=== PATIENT | female | born 1960 | race American Indian/Alaskan Native ===

== ENCOUNTER 2018-10-24 10:37 | Outpatient (CLI) | payer MEDICAID ==
--- NOTE | 2018-10-24 13:00 | Mammography Report ---
Bilateral mammogram: No previous studies available. CAD study utilized. Findings: Predominance of adipose tissue bilaterally. Benign calcifications right breast. Faint cluster of calcifications upper outer left breast. Subareolar density right breast. Normal axilla. Impression: Faint calcification left breast. Recommend spot compression and magnification views. Subareolar density right breast recommend spot compression and sonographic examination. BI-RADS CATEGORY: 0 = Needs additional imaging evaluation ACR BI-RADS MAMMOGRAPHIC CODES: 0 = Needs additional imaging evaluation; 1 = Negative; 2 = Benign; 3 = Probably benign; 4 = Suspicious; 5 = Malignant; 6 = Known biopsy-proven malignancy COMMENT: 1. Dense breast tissue, i.e., adenosis, fibrocystic changes, etc., may obscure an underlying neoplasm. 2. Approximately 10% of cancers are not detected with mammography. 3. A negative mammography report should not delay biopsy if a clinically suspicious mass is present. COMMENT: Patient follow-up letters are generated in [employer].
== END 2018-10-24 10:38 | disposition home or self-care (01) ==
LOC: MAMMO 10:37
PROVIDERS: ATTEND Internal Medicine
DX: Z12.31 Encounter for screening mammogram for malignant neoplasm of breast (principal); I10 Essential (primary) hypertension; M19.90 Unspecified osteoarthritis, unspecified site
CPT/HCPCS: 36415; 77067; 80061; 83036

== ENCOUNTER 2018-10-24 10:49 | Outpatient (CLI) | payer MEDICAID ==
[2018-10-24 12:10] LABS: Chol/HDL Ratio 3.15 %
== END 2018-10-24 10:50 | disposition home or self-care (01) ==
LOC: LAB 10:49
PROVIDERS: ATTEND Internal Medicine
DX: Z00.01 Encounter for general adult medical examination with abnormal findings (principal); I10 Essential (primary) hypertension; E66.01 Morbid (severe) obesity due to excess calories; I16.9 Hypertensive crisis, unspecified
CPT/HCPCS: 36415; 80061; 83036

== ENCOUNTER 2018-11-29 12:59 | Outpatient (CLI) | payer MEDICAID ==
--- NOTE | 2018-11-30 09:59 | Mammography Report ---
Spot compression of subareolar density right breast followed by sonographic examination: Compared to 10/24/18. Findings: On spot compression views there is effacement noted of the density. No microcalcifications seen. On sonographic examination vertebral dilated ducts are identified in subareolar area. No intrinsic mass seen. Patient is no history of nipple discharge. Impression: Probably benign findings. Annual followup. Mammogram recommended. BI-RADS CATEGORY: 2 = Benign ACR BI-RADS MAMMOGRAPHIC CODES: 0 = Needs additional imaging evaluation; 1 = Negative; 2 = Benign; 3 = Probably benign; 4 = Suspicious; 5 = Malignant; 6 = Known biopsy-proven malignancy COMMENT: 1. Dense breast tissue, i.e., adenosis, fibrocystic changes, etc., may obscure an underlying neoplasm. 2. Approximately 10% of cancers are not detected with mammography. 3. A negative mammography report should not delay biopsy if a clinically suspicious mass is present. COMMENT: Patient follow-up letters are generated in [employer].
== END 2018-11-29 13:00 | disposition home or self-care (01) ==
LOC: MAMMO 12:59
PROVIDERS: ATTEND Internal Medicine
DX: R92.8 Other abnormal and inconclusive findings on diagnostic imaging of breast (principal); I10 Essential (primary) hypertension
CPT/HCPCS: 77066

== ENCOUNTER 2018-11-30 09:30 | Outpatient (CLI) | payer MEDICAID ==
--- NOTE | 2018-11-30 09:59 | Ultrasound Report ---
Spot compression of subareolar density right breast followed by sonographic examination: Compared to 10/24/18. Findings: On spot compression views there is effacement noted of the density. No microcalcifications seen. On sonographic examination vertebral dilated ducts are identified in subareolar area. No intrinsic mass seen. Patient is no history of nipple discharge. Impression: Probably benign findings. Annual followup. Mammogram recommended. BI-RADS CATEGORY: 2 = Benign ACR BI-RADS MAMMOGRAPHIC CODES: 0 = Needs additional imaging evaluation; 1 = Negative; 2 = Benign; 3 = Probably benign; 4 = Suspicious; 5 = Malignant; 6 = Known biopsy-proven malignancy COMMENT: 1. Dense breast tissue, i.e., adenosis, fibrocystic changes, etc., may obscure an underlying neoplasm. 2. Approximately 10% of cancers are not detected with mammography. 3. A negative mammography report should not delay biopsy if a clinically suspicious mass is present. COMMENT: Patient follow-up letters are generated in [employer].
== END 2018-11-30 09:31 | disposition home or self-care (01) ==
LOC: US 09:30
PROVIDERS: ATTEND Internal Medicine
DX: R92.8 Other abnormal and inconclusive findings on diagnostic imaging of breast (principal); I10 Essential (primary) hypertension

== ENCOUNTER 2019-01-19 12:34 | Emergency (ER) | payer MEDICAID ==
[2019-01-19 12:41] VITALS: BP 195/118
--- NOTE | 2019-01-19 12:48 | Event Note ---
ED Screening Note ED Screening Note: 58 y/o female comes in for abd pain that started last night about 9pm. Diffused and radiate to her back. +n/v. Chills. This initial assessment/diagnostic orders/clinical plan/treatment(s) is/are subject to change based on patients health status, clinical progression and re- assessment by fellow clinical providers in the ED. Further treatment and workup at subsequent clinical providers discretion. Patient/guardian urged not to elope from the ED as their condition may be serious if not clinically assessed and managed. Initial orders include:
[2019-01-19] MEDS ORDERED: ZOFRAN IV ONE (13:02)
[2019-01-19] MEDS ORDERED: LACTATED RINGERS 1,000 ML IV ONE (13:02)
[2019-01-19] MEDS ORDERED: MORPHINE IV ONE (13:02)
--- NOTE | 2019-01-19 13:06 | Emergency Department Report ---
ED Abdominal Pain HPI - General Chief Complaint: Abdominal Pain Stated Complaint: ABDOMINAL PAIN Time Seen by Provider: 01/19/19 13:01 Source: patient Mode of arrival: Wheelchair Limitations: No Limitations - History of Present Illness Initial Comments: abd pain, n/v after eating a tuna sandwich last night no diarrhea no cp/sob MD Complaint: abdominal pain -: Gradual, hour(s) (16) Location: diffuse Radiation: none Migration to: no migration Severity: moderate Severity scale (0 -10): 6 Quality: cramping, aching Consistency: constant Improves With: nothing Worsens With: nothing Context: possible food poisoning Associated Symptoms: nausea, vomiting, chills. denies: diarrhea - Related Data Previous Rx's Medication Instructions Recorded Last Taken Type Aspirin [Aspirin BABY CHEW TAB] 81 mg PO QDAY tab.chew 07/17/15 Unknown Rx Diphenhydramine HCl [Benadryl 25 mg PO TID #7 tablet 07/17/15 Unknown Rx Allergy TAB] Famotidine [Pepcid] 20 mg PO BID #60 tablet 07/17/15 Unknown Rx Furosemide [Lasix TAB] 40 mg PO QDAY #30 tablet 07/17/15 Unknown Rx HYDROcodone/APAP 5-325 [[place] 1 each PO Q6H PRN #30 tablet 07/17/15 Unknown Rx 5-325 mg TAB] Potassium Chloride [K-Dur] 10 meq PO QDAY #30 tablet 07/17/15 Unknown Rx prednisoLONE [Millipred] 10 tab PO QDAY #52 tablet 07/17/15 Unknown Rx Hyoscyamine Subl [Levsin Sl 0.125 0.125 mg SL Q6HR #12 tab 01/19/19 Unknown Rx TAB] Promethazine [Phenergan] 25 mg PO Q6HR PRN #12 tab 01/19/19 Unknown Rx Allergies Allergy/AdvReac Type Severity Reaction Status Date / Time lisinopril AdvReac Angioedema Verified 01/19/19 12:35 ED Review of Systems ROS: Stated complaint: ABDOMINAL PAIN Other details as noted in HPI Comment: All other systems reviewed and negative Gastrointestinal: as per HPI ED Past Medical Hx - Past Medical History Hx Hypertension: Yes Hx Congestive Heart Failure: No Hx Diabetes: No Hx Arthritis: Yes Hx Asthma: No Hx COPD: No - Surgical History Additional Surgical History: hernia - Social History Smoking Status: Never Smoker Substance Use Type: None - Medications Home Medications: Home Medications Medication Instructions Recorded Confirmed Last Taken Type Aspirin [Aspirin BABY CHEW TAB] 81 mg PO QDAY tab.chew 07/17/15 Unknown Rx Diphenhydramine HCl [Benadryl 25 mg PO TID #7 tablet 07/17/15 Unknown Rx Allergy TAB] Famotidine [Pepcid] 20 mg PO BID #60 tablet 07/17/15 Unknown Rx Furosemide [Lasix TAB] 40 mg PO QDAY #30 tablet 07/17/15 Unknown Rx HYDROcodone/APAP 5-325 [[place] 1 each PO Q6H PRN #30 tablet 07/17/15 Unknown Rx 5-325 mg TAB] Potassium Chloride [K-Dur] 10 meq PO QDAY #30 tablet 07/17/15 Unknown Rx prednisoLONE [Millipred] 10 tab PO QDAY #52 tablet 07/17/15 Unknown Rx Hyoscyamine Subl [Levsin Sl 0.125 0.125 mg SL Q6HR #12 tab 01/19/19 Unknown Rx TAB] Promethazine [Phenergan] 25 mg PO Q6HR PRN #12 tab 01/19/19 Unknown Rx ED Physical Exam - General Limitations: No Limitations General appearance: alert, in no apparent distress - Head Head exam: Present: atraumatic, normocephalic - Eye Eye exam: Present: normal appearance - ENT ENT exam: Present: mucous membranes moist - Neck Neck exam: Present: normal inspection - Respiratory Respiratory exam: Present: normal lung sounds bilaterally. Absent: respiratory distress - Cardiovascular Cardiovascular Exam: Present: regular rate, normal rhythm. Absent: systolic mur mur, diastolic murmur, rubs, gallop - GI/Abdominal GI/Abdominal exam: Present: soft, tenderness (diffuse, most epigastric and LLQ), normal bowel sounds. Absent: distended, guarding, rebound - Extremities Exam Extremities exam: Present: normal inspection - Back Exam Back exam: Present: normal inspection - Neurological Exam Neurological exam: Present: alert, oriented X3 - Psychiatric Psychiatric exam: Present: normal affect, normal mood - Skin Skin exam: Present: warm, dry, intact, normal color. Absent: rash ED Course Vital Signs 01/19/19 12:40 Temperature 97.8 F Pulse Rate 75 Respiratory 20 Rate Blood Pressure 195/118 [Left] O2 Sat by Pulse 100 Oximetry - Reevaluation(s) Reevaluation #1: 01/19/19 16:54 feels better discussed incidental findings on CT no cough/fever to suggest PNA no RUQ ttp to suggest GB etiology of pain encourage f/u PCP, RTER for worsening symptoms ED Medical Decision Making - Lab Data Result diagrams: 01/19/19 13:07 01/19/19 13:07 - Radiology Data Radiology results: report reviewed CT= multiple incidental findings including distended gallbladder, L inguinal hernia, OA of hips, atelectasis (no sx to suggest pna), fibroids - Medical Decision Making abd pain, n/v exam- diffuse ttp plan- labs, CT IVF, morphine, zofran - Differential Diagnosis gastroenteritis, diverticulitis, colitis, appendicitis among others Critical care attestation.: If time is entered above; I have spent that time in minutes in the direct care of this critically ill patient, excluding procedure time. ED Disposition Clinical Impression: Abdominal pain Qualifiers: Abdominal location: generalized Qualified Code(s): R10.84 - Generalized abdominal pain Disposition: DC- TO HOME OR SELFCARE Is pt being admited?: No Condition: Stable Instructions: Abdominal Pain (ED) Prescriptions: Hyoscyamine Subl [Levsin Sl 0.125 TAB] 0.125 mg SL Q6HR #12 tab Promethazine [Phenergan] 25 mg PO Q6HR PRN #12 tab PRN Reason: Nausea Referrals: TIMUR BENTON MD [Primary Care Provider] - 3-5 Days Time of Disposition: 16:55
[2019-01-19 13:26] LABS: Basophils % (Auto) 0.3 % (0.0-1.8); Eosinophils # (Auto) 0.1 K/mm3 (0.0-0.4); Eosinophils % (Auto) 2.5 % (0.0-4.3); Hematocrit 42.8 % (30.3-42.9); Hemoglobin 14.1 gm/dl (10.1-14.3); Lymphocytes % (Auto) 40.7 % (13.4-35.0); Mean Corpuscular HGB Conc 33 % (30-34); Mean Corpuscular Volume 90 fl (79-97); Monocytes # (Auto) 0.5 K/mm3 (0.0-0.8); Monocytes % (Auto) 9.3 % (0.0-7.3); Platelet Count 198 K/mm3 (140-440); Red Blood Count 4.77 M/mm3 (3.65-5.03)
[2019-01-19 13:44] LABS: Bilirubin,Urine NEG (Negative); Blood,Urine SM (Negative); Color,Urine Yellow (Yellow); Mucus,Urine FEW /HPF; Protein,Urine <15 mg/dL mg/dL (Negative); Urobilinogen,Urine < 2.0 mg/dL (<2.0)
[2019-01-19 14:05] LABS: Alanine Aminotransferase 15 units/L (7-56); Albumin 3.9 g/dL (3.9-5); BUN/Creatinine Ratio 14; Blood Urea Nitrogen 10 mg/dL (7-17); Hemolysis Index 1
--- NOTE | 2019-01-19 16:45 | Cat Scan Report ---
EXAM: CT ABDOMEN PELVIS W CON HISTORY: abd pain TECHNIQUE: Spiral axial CT images are obtained through the abdomen and pelvis without the administrat ion of oral contrast and with the administration of intravenous contrast. Additional coronal and sagi ttal reformatted images are reconstructed. COMPARISON: None available. FINDINGS: GASTROINTESTINAL TRACT: There is a small hiatal hernia. There are no stigmata of bowel obstruction, c olitis or diverticulitis. A normal-appearing appendix is seen. GENITOURINARY SYSTEM: The kidneys are unremarkable. There is no ureteral calculus or stigmata of obst ructive uropathy. The urinary bladder is grossly unremarkable for a non-dedicated exam. CT ABDOMEN: There is a grossly dilated/elongated gallbladder with questionable gallbladder wall thick ening; nonspecific finding which may represent sequela of NPO status, but cannot rule out cholelithia sis in the appropriate clinical setting. Consider follow-up evaluation with ultrasound to rule out oc cult cholelithiasis and/or HIDA scan to rule out cystic duct obstruction and acute cholecystitis as c linically warranted. The liver, spleen, pancreas, adrenal glands, aorta, and inferior vena cava are within normal limits for a noncontrast CT scan. There is no intra-abdominal or retroperitoneal lymph adenopathy, free fluid, or free air seen. Status post ventral hernia repair with mesh in situ; no her luci recurrence seen. No abdominal herniation is noted. CT PELVIS: There is an enlarged fibroid uterus, with a dominant anterior right fundal fibroid measuri ng approximately 4.7 cm. No gross adnexal mass lesion is seen. No pelvic sidewall or inguinal lympha denopathy is seen. Small, approximately 5.8 cm CC by 2.7 cm transverse by 2.1 cm AP, fat-containing l eft inguinal hernia of doubtful clinical significance. No free fluid or free air is seen. There is se paul osteoarthritis of the hips. LUNG BASES: There is a mild right lower lobe groundglass parenchymal infiltrate, presumed to represen t atelectasis, but cannot rule out mild pulmonary congestion or mild acute pneumonia in the appropria te clinical setting. Recommend clinical correlation and appropriate followup evaluation as clinically warranted to ensure complete clearance. IMPRESSION: 1. Grossly dilated/elongated gallbladder with questionable gallbladder wall thickening; nonspecific finding which may represent sequela of NPO status, but cannot rule out cholelithiasis in the appropri ate clinical setting. Consider follow-up evaluation with ultrasound to rule out occult cholelithiasis and/or HIDA scan to rule out cystic duct obstruction and acute cholecystitis as clinically warranted . 2. No evidence for renal stone disease or obstructive uropathy. 3. No evidence for acute appendicitis, bowel obstruction, colitis or diverticulitis seen. 4. Small hiatal hernia. 5. Enlarged fibroid uterus, with a dominant anterior right fundal fibroid measuring approximately 4. 7 cm. No gross adnexal mass lesion is seen. 6. No free fluid, free air or lymphadenopathy seen. 7. Severe osteoarthritis of the hips. 8. Mild right lower lobe groundglass parenchymal infiltrate, presumed to represent atelectasis, but cannot rule out mild pulmonary congestion or mild acute pneumonia in the appropriate clinical setting . Recommend clinical correlation and appropriate followup evaluation as clinically warranted to ensur e complete clearance. This document is electronically signed by Blaise Wilcox MD., January 19 2019 04:43:42 PM ET
== END 2019-01-19 17:48 | disposition home or self-care (01) ==
LOC: ED 12:34
DX: R10.84 Generalized abdominal pain (principal); R11.2 Nausea with vomiting, unspecified; R10.13 Epigastric pain; R10.32 Left lower quadrant pain; I10 Essential (primary) hypertension; M19.90 Unspecified osteoarthritis, unspecified site; Z88.5 Allergy status to narcotic agent; Z79.82 Long term (current) use of aspirin; Z79.899 Other long term (current) drug therapy
CPT/HCPCS: 36415; 74177; 80053; 81001; 83690; 85025; 96361; 96374; 96375; 99284; J2270; J2405; J7120; Q9967

== ENCOUNTER 2019-02-04 02:32 | Emergency (ER) | payer MEDICAID ==
[2019-02-04] MEDS ORDERED: SUBLIMAZE IV ONE (03:13)
[2019-02-04] MEDS ORDERED: ANTIVERT PO ONE (03:13)
[2019-02-04] MEDS ORDERED: ZOFRAN IV ONE (03:13)
--- NOTE | 2019-02-04 03:18 | Emergency Department Report ---
HPI - General Chief Complaint: Nausea/Vomiting/Diarrhea Time Seen by Provider: 02/04/19 03:00 - HPI HPI: Room 26 The patient is a 58-year-old female presenting with chief complaint of vertigo. The patient states this evening at approximately 21:00 she developed nausea. The patient says she took a Zofran and laid down. The patient states when she attempted to get up to the bathroom felt as though the room was spinning. Patient says she also had a frontal headache nausea and vomiting. The patient states change in position worsens the vertigo. Patient is a headache a score of 8/10. Location: [See above] Duration: [See above] Quality: [See above] Severity: [See above] Modifying factors: [see above] Context: [see above] Mode of transportation: [not driving] ED Past Medical Hx - Past Medical History Hx Hypertension: Yes Hx Arthritis: Yes - Surgical History Past Surgical History?: No Additional Surgical History: hernia - Family History Family history: no significant - Social History Smoking Status: Never Smoker Substance Use Type: None - Medications Home Medications: Home Medications Medication Instructions Recorded Confirmed Last Taken Type Aspirin [Aspirin BABY CHEW TAB] 81 mg PO QDAY tab.chew 07/17/15 Unknown Rx Diphenhydramine HCl [Benadryl 25 mg PO TID #7 tablet 07/17/15 Unknown Rx Allergy TAB] Famotidine [Pepcid] 20 mg PO BID #60 tablet 07/17/15 Unknown Rx Furosemide [Lasix TAB] 40 mg PO QDAY #30 tablet 07/17/15 Unknown Rx HYDROcodone/APAP 5-325 [[place] 1 each PO Q6H PRN #30 tablet 07/17/15 Unknown Rx 5-325 mg TAB] Potassium Chloride [K-Dur] 10 meq PO QDAY #30 tablet 07/17/15 Unknown Rx prednisoLONE [Millipred] 10 tab PO QDAY #52 tablet 07/17/15 Unknown Rx Hyoscyamine Subl [Levsin Sl 0.125 0.125 mg SL Q6HR #12 tab 01/19/19 Unknown Rx TAB] Promethazine [Phenergan] 25 mg PO Q6HR PRN #12 tab 01/19/19 Unknown Rx HYDROcodone/APAP 5-325 [[place] 1 - 2 each PO Q6HR PRN #10 tablet 02/04/19 Unknown Rx 5/325] Meclizine [Antivert] 25 mg PO TID PRN #20 tablet 02/04/19 Unknown Rx Ondansetron [Zofran ODT TAB] 8 mg PO Q8HR #20 tab.rapdis 02/04/19 Unknown Rx ED Review of Systems ROS: Stated complaint: VOMITING Other details as noted in HPI Constitutional: denies: fever Eyes: denies: eye pain ENT: denies: throat pain Respiratory: no symptoms reported Cardiovascular: denies: chest pain Endocrine: no symptoms reported Gastrointestinal: nausea, vomiting Genitourinary: denies: dysuria Musculoskeletal: denies: back pain Neurological: headache, vertigo Physical Exam - Physical Exam Vital Signs: Vital Signs 02/04/19 02:59 Temperature 97.8 F Pulse Rate 60 Respiratory 17 Rate Blood Pressure 160/84 O2 Sat by Pulse 94 Oximetry Physical Exam: GENERAL: The patient is well-developed well-nourished female lying on stretcher not appearing to be in acute distress. [] HEENT: Normocephalic. Atraumatic. Extraocular motions are intact. Patient has moist mucous membranes. No nystagmus noted NECK: Supple. Trachea midline CHEST/LUNGS: Clear to auscultation. There is no respiratory distress noted. HEART/CARDIOVASCULAR: Regular. There is no tachycardia. There is no gallop rub or murmur. ABDOMEN: Abdomen is soft, with mild discomfort to palpation in the right upper quadrant. Patient has normal bowel sounds. There is no abdominal distention. SKIN: There is no rash. There is no edema. There is no diaphoresis. NEURO: The patient is awake, alert, and oriented. The patient is cooperative. The patient has no focal neurologic deficits. The patient has normal speech. Cranial nerves II through XII grossly intact, no drift. No dysmetria noted with [id number] bilaterally MUSCULOSKELETAL: There is no evidence of acute injury. ED Course Vital Signs 02/04/19 02:59 Temperature 97.8 F Pulse Rate 60 Respiratory 17 Rate Blood Pressure 160/84 O2 Sat by Pulse 94 Oximetry Vital Signs 02/04/19 02/04/19 02/04/19 02:59 03:39 04:54 Temperature 97.8 F Pulse Rate 60 60 74 Respiratory 17 17 17 Rate Blood Pressure 160/84 Blood Pressure 128/89 [Right] O2 Sat by Pulse 94 100 99 Oximetry - Reevaluation(s) Reevaluation #1: 02/04/19 05:00 Patient states she feels improved ED Medical Decision Making - Lab Data Result diagrams: 02/04/19 03:34 02/04/19 03:34 Laboratory Tests 02/04/19 02/04/19 02/04/19 03:34 03:34 03:34 WBC 6.1 RBC 4.68 Hgb 13.9 Hct 42.2 MCV 90 MCH 30 MCHC 33 RDW 14.8 Plt Count 207 Lymph % (Auto) 17.1 Baker % (Auto) 5.7 Eos % (Auto) 0.5 Baso % (Auto) 0.2 Lymph # 1.0 L Baker # 0.3 Eos # 0.0 Baso # 0.0 Seg Neutrophils % 76.5 H Seg Neutrophils # 4.6 PT 13.8 INR 1.09 APTT 26.8 Sodium 141 Potassium 4.1 Chloride 105.0 Carbon Dioxide 27 Anion Gap 13 BUN 18 H Creatinine 0.9 Estimated GFR > 60 BUN/Creatinine Ratio 20 Glucose 117 H Calcium 9.0 Total Bilirubin 0.20 AST 18 ALT 16 Alkaline Phosphatase 63 Total Creatine Kinase 124 CK-MB (CK-2) 1.8 CK-MB (CK-2) Rel Index 1.4 Troponin T < 0.010 Total Protein 7.6 Albumin 4.0 Albumin/Globulin Ratio 1.1 - Radiology Data Radiology results: report reviewed (CT head), image reviewed (CT head) [facility] [address] [place] [address] Cat Scan Report Signed Patient: AJIT CHOWDHURY MR#: [id number] : 1960 Acct:[id number] Age/Sex: 58 / F ADM Date: 02/04/19 Loc: ED Attending Dr: Ordering Physician: ANGUS ANDERSON MD Date of Service: 02/04/19 Pro cedure(s): CT head/brain wo con Accession Number(s): [id number] cc: ANGUS ANDERSON MD CT head/brain wo con INDICATION / CLINICAL INFORMATION: MAIN: headache, vertigo, NAUSEA, VOMITING. TECHNIQUE: All CT scans at this location are performed using CT dose reduction for ALARA by means of automated exposure control. COMPARISON: 12/15/2014 FINDINGS: No acute intracranial hemorrhage. No abnormal extra-axial fluid collection. No evidence of mass effect. The ventricular system and basilar cisterns are normal. Note is made of empty sella. Visualized paranasal sinuses are clear. Mastoid air cells are normally aerated. No skeletal abnormality. IMPRESSION: 1. No acute intracranial abnormality or interval change. Signer Name: Ino Dietz MD Signed: 02/04/2019 4:39 AM Workstation Name: [id number] Transcribed By: GA Dictated By: Ino Dietz MD Electronically Authenticated By: Ino Dietz MD Signed Date/Time: 02/04/19438 DD/ 3 TD/TT: - Differential Diagnosis vertigo, intracranial mass, ICH Critical care attestation.: If time is entered above; I have spent that time in minutes in the direct care of this critically ill patient, excluding procedure time. ED Disposition Clinical Impression: Vertigo, Nausea & vomiting Disposition: - TO HOME OR SELFCARE Is pt being admited?: No Does the pt Need Aspirin: No Condition: Stable Instructions: Vertigo (ED) Additional Instructions: Return to the emergency department immediately should you develop worsening symptoms, fever, inability to tolerate food or liquid or any other concerns. Prescriptions: Meclizine [Antivert] 25 mg PO TID PRN #20 tablet PRN Reason: Vertigo HYDROcodone/APAP 5-325 [[place] 5/325] 1 - 2 each PO Q6HR PRN #10 tablet PRN Reason: Pain Ondansetron [Zofran ODT TAB] 8 mg PO Q8HR #20 tab.isabelle Referrals: PRIMARY MD HIRAL [Primary Care Provider] - 3-5 Days MARU CASTILLO MD [Staff Physician] - 2-3 Days (Dr Castillo is a neurologist. Please follow-up with him for further evaluation) Time of Disposition: 05:01
[2019-02-04 03:59] LABS: Basophils % (Auto) 0.2 % (0.0-1.8); Eosinophils % (Auto) 0.5 % (0.0-4.3); Hematocrit 42.2 % (30.3-42.9); Hemoglobin 13.9 gm/dl (10.1-14.3); Lymphocytes % (Auto) 17.1 % (13.4-35.0); Mean Corpuscular HGB Conc 33 % (30-34); Mean Corpuscular Volume 90 fl (79-97); Monocytes # (Auto) 0.3 K/mm3 (0.0-0.8); Monocytes % (Auto) 5.7 % (0.0-7.3); Platelet Count 207 K/mm3 (140-440); Red Blood Count 4.68 M/mm3 (3.65-5.03); Red Cell Distribution Width 14.8 % (13.2-15.2)
[2019-02-04 04:07] LABS: INR 1.09 (0.87-1.13)
[2019-02-04 04:08] LABS: Partial Thromboplastin Time 26.8 Sec. (24.2-36.6)
[2019-02-04 04:28] LABS: Creatine Kinase MB 1.8 ng/mL (0.0-4.0)
[2019-02-04 04:30] LABS: Alanine Aminotransferase 16 units/L (7-56); BUN/Creatinine Ratio 20; Blood Urea Nitrogen 18 mg/dL (7-17); Hemolysis Index 7
--- NOTE | 2019-02-04 04:43 | Cat Scan Report ---
CT head/brain wo con INDICATION / CLINICAL INFORMATION: MAIN: headache, vertigo, NAUSEA, VOMITING. TECHNIQUE: All CT scans at this location are performed using CT dose reduction for ALARA by means of automated e xposure control. COMPARISON: 12/15/2014 FINDINGS: No acute intracranial hemorrhage. No abnormal extra-axial fluid collection. No evidence of mass effect. The ventricular system and basilar cisterns are normal. Note is made of empty sella. Visualized paranasal sinuses are clear. Mastoid air cells are normally aerated. No skeletal abnormality. IMPRESSION: 1. No acute intracranial abnormality or interval change. Signer Name: Ino Dietz MD Signed: 02/04/2019 4:39 AM Workstation Name: [id number]
[2019-02-04 04:55] VITALS: BP 128/89
[2019-02-04] MEDS ORDERED: REGLAN IV ONE (04:59)
== END 2019-02-04 05:23 | disposition home or self-care (01) ==
LOC: ED 02:32
DX: R42 Dizziness and giddiness (principal); R11.2 Nausea with vomiting, unspecified; I10 Essential (primary) hypertension; M19.90 Unspecified osteoarthritis, unspecified site; Z79.899 Other long term (current) drug therapy; Z79.82 Long term (current) use of aspirin
CPT/HCPCS: 36415; 70450; 80053; 82550; 82553; 84484; 85025; 85610; 85730; 96374; 96375; 99284; J2405; J2765; J3010

== ENCOUNTER 2019-02-07 12:54 | Outpatient (CLI) | payer MEDICAID ==
--- NOTE | 2019-02-07 16:20 | Vascular Lab Report ---
DUPLEX DOPPLER LOWER EXTREMITY ARTERIAL, RIGHT INDICATION: PERIPHERAL VASCULAR DISEASE. TECHNIQUE: Arterial duplex examination of both lower extremities performed using B-mode, color flow and spectral Doppler assessment. FINDINGS: RIGHT: Common Femoral Artery: PSV 153 cm/sec. Triphasic waveform. Proximal SFA: PSV 116 cm/sec. Triphasic waveform. Mid SFA: PSV 81 cm/sec. Triphasic waveform. Distal SFA: PSV 71 cm/sec. Triphasic waveform. Popliteal artery: PSV 45 cm/sec. Triphasic waveform. Posterior tibial artery: PSV 38 cm/sec. Triphasic waveform. Dorsalis Pedis Artery: PSV 65 cm/sec. Triphasic waveform. Doppler Waveform: * Triphasic is normal. * Biphasic is abnormal if clear transition from triphasic signal along vascular tree. * Monophasic is abnormal. IMPRESSION: No significant peripheral artery disease in the right lower extremity. Signer Name: Mello Aguilar Jr, MD Signed: 02/07/2019 4:16 PM Workstation Name: [id number]
== END 2019-02-07 12:55 | disposition home or self-care (01) ==
LOC: VAS 12:54
PROVIDERS: ATTEND Internal Medicine
DX: I73.9 Peripheral vascular disease, unspecified (principal)

== ENCOUNTER 2019-02-17 15:52 | Emergency (ER) | payer MEDICAID ==
--- NOTE | 2019-02-17 16:09 | Emergency Department Report ---
Blank Doc - Documentation Documentation: This is a 58-year-old female that presents with right lower back/groin pain with radiation to right leg. Denies any urinary symptoms. This initial assessment/diagnostic orders/clinical plan/treatment(s) is/are subject to change based on patient's health status, clinical progression and re- assessment by fellow clinical providers in the ED. Further treatment and workup at subsequent clinical providers discretion. Patient/guardians urged not to elope from the ED as their condition may be serious if not clinically assessed and managed. Initial orders include: 1- Patient sent to [facility] for further evaluation and treatment
[2019-02-17 17:35] LABS: Bilirubin,Urine NEG (Negative); Blood,Urine NEG (Negative); Color,Urine Yellow (Yellow); Mucus,Urine 1+ /HPF; Protein,Urine <15 mg/dL mg/dL (Negative); Urobilinogen,Urine < 2.0 mg/dL (<2.0)
[2019-02-17] MEDS ORDERED: ULTRAM PO ONE (19:17)
--- NOTE | 2019-02-17 19:20 | Emergency Department Report ---
ED General Adult HPI - General Chief complaint: Extremity Problem,Nontraumatic Stated complaint: GROIN PAIN Time Seen by Provider: 02/17/19 16:07 Source: patient Mode of arrival: Wheelchair Limitations: No Limitations - History of Present Illness Initial comments: She is a 58-year-old female presents to ED complaining of right-sided lower pelvic/groin pain that began last night while she got up out of the bed. Patient states that she did not have any injuries fall or trauma. Patient states pain is about the last her right pelvis/groin region. Patient also states that pain is worse in the applying pressure to the right side of the pelvis. Patient states that she's had similar pain about a month ago. She denies fevers/chills/nausea vomiting/diarrhea/vaginal pain, discharge or bleeding. - Related Data Previous Rx's Medication Instructions Recorded Last Taken Type Aspirin [Aspirin BABY CHEW TAB] 81 mg PO QDAY tab.chew 07/17/15 Unknown Rx Diphenhydramine HCl [Benadryl 25 mg PO TID #7 tablet 07/17/15 Unknown Rx Allergy TAB] Famotidine [Pepcid] 20 mg PO BID #60 tablet 07/17/15 Unknown Rx Furosemide [Lasix TAB] 40 mg PO QDAY #30 tablet 07/17/15 Unknown Rx HYDROcodone/APAP 5-325 [[place] 1 each PO Q6H PRN #30 tablet 07/17/15 Unknown Rx 5-325 mg TAB] Potassium Chloride [K-Dur] 10 meq PO QDAY #30 tablet 07/17/15 Unknown Rx prednisoLONE [Millipred] 10 tab PO QDAY #52 tablet 07/17/15 Unknown Rx Hyoscyamine Subl [Levsin Sl 0.125 0.125 mg SL Q6HR #12 tab 01/19/19 Unknown Rx TAB] Promethazine [Phenergan] 25 mg PO Q6HR PRN #12 tab 01/19/19 Unknown Rx HYDROcodone/APAP 5-325 [[place] 1 - 2 each PO Q6HR PRN #10 tablet 02/04/19 Unknown Rx 5/325] Meclizine [Antivert] 25 mg PO TID PRN #20 tablet 02/04/19 Unknown Rx Ondansetron [Zofran ODT TAB] 8 mg PO Q8HR #20 tab.rapdis 02/04/19 Unknown Rx Ibuprofen [Motrin] 800 mg PO Q8HR #30 tablet 02/17/19 Unknown Rx traMADol [Ultram 50 MG tab] 50 mg PO Q6HR PRN #15 tablet 02/17/19 Unknown Rx Allergies Allergy/AdvReac Type Severity Reaction Status Date / Time lisinopril AdvReac Angioedema Verified 01/19/19 12:35 ED Review of Systems ROS: Stated complaint: GROIN PAIN Other details as noted in HPI Comment: All other systems reviewed and negative ED Past Medical Hx - Past Medical History Previous Medical History?: Yes Hx Hypertension: Yes Hx Congestive Heart Failure: No Hx Diabetes: No Hx Arthritis: Yes Hx Asthma: No Hx COPD: No - Surgical History Past Surgical History?: Yes Additional Surgical History: hernia - Social History Smoking Status: Never Smoker Substance Use Type: None - Medications Home Medications: Home Medications Medication Instructions Recorded Confirmed Last Taken Type Aspirin [Aspirin BABY CHEW TAB] 81 mg PO QDAY tab.chew 07/17/15 Unknown Rx Diphenhydramine HCl [Benadryl 25 mg PO TID #7 tablet 07/17/15 Unknown Rx Allergy TAB] Famotidine [Pepcid] 20 mg PO BID #60 tablet 07/17/15 Unknown Rx Furosemide [Lasix TAB] 40 mg PO QDAY #30 tablet 07/17/15 Unknown Rx HYDROcodone/APAP 5-325 [[place] 1 each PO Q6H PRN #30 tablet 07/17/15 Unknown Rx 5-325 mg TAB] Potassium Chloride [K-Dur] 10 meq PO QDAY #30 tablet 07/17/15 Unknown Rx prednisoLONE [Millipred] 10 tab PO QDAY #52 tablet 07/17/15 Unknown Rx Hyoscyamine Subl [Levsin Sl 0.125 0.125 mg SL Q6HR #12 tab 01/19/19 Unknown Rx TAB] Promethazine [Phenergan] 25 mg PO Q6HR PRN #12 tab 01/19/19 Unknown Rx HYDROcodone/APAP 5-325 [[place] 1 - 2 each PO Q6HR PRN #10 tablet 02/04/19 Unknown Rx 5/325] Meclizine [Antivert] 25 mg PO TID PRN #20 tablet 02/04/19 Unknown Rx Ondansetron [Zofran ODT TAB] 8 mg PO Q8HR #20 tab.rapdis 02/04/19 Unknown Rx Ibuprofen [Motrin] 800 mg PO Q8HR #30 tablet 02/17/19 Unknown Rx traMADol [Ultram 50 MG tab] 50 mg PO Q6HR PRN #15 tablet 02/17/19 Unknown Rx ED Physical Exam - General Limitations: No Limitations General appearance: alert, in no apparent distress - Head Head exam: Present: atraumatic, normocephalic - Eye Eye exam: Present: normal appearance - ENT ENT exam: Present: mucous membranes moist - Neck Neck exam: Present: normal inspection - Respiratory Respiratory exam: Present: normal lung sounds bilaterally. Absent: respiratory distress - Cardiovascular Cardiovascular Exam: Present: regular rate, normal rhythm. Absent: systolic murmur, diastolic murmur, rubs, gallop - GI/Abdominal GI/Abdominal exam: Present: soft, tenderness (the right groin region. No abdominal tenderness.), normal bowel sounds. Absent: distended, guarding, rebound, organomegaly, mass, hernia - Expanded GI/Abdominal Exam Expanded GI/Abdominal exam: Absent: psoas sign, Nunes's sign, Rovsing's sign - Extremities Exam Extremities exam: Present: normal inspection, full ROM, tenderness (to the right inner groin region, no palpation of the inguinal hernia). Absent: joint swelling, calf tenderness - Back Exam Back exam: Present: normal inspection - Neurological Exam Neurological exam: Present: alert, oriented X3 - Psychiatric Psychiatric exam: Present: normal affect, normal mood - Skin Skin exam: Present: warm, dry, intact, normal color. Absent: rash ED Course Vital Signs 02/17/19 02/17/19 16:08 22:23 Temperature 98.6 F 97.9 F Pulse Rate 88 62 Respiratory 18 18 Rate Blood Pressure 141/80 Blood Pressure 166/93 [Right] O2 Sat by Pulse 100 98 Oximetry ED Medical Decision Making - Radiology Data Radiology results: report reviewed, image reviewed Ordering Physician: DEZ CARMONA Date of Service: 02/17/19 Procedure(s): US pelvic complete Accession Number(s): [id number] cc: DEZ CARMONA Examination: Complete nonobstetrical pelvic ultrasound, 02/17/2019 Clinical information: Right-sided pelvic pain Comparison: CT of the abdomen and pelvis, 01/19/2019 Findings: Transabdominal imaging of the pelvis was performed. Transvaginal evaluation was not performed due to patient's clinical condition. The uterus is within normal limits in size measuring 8.4 x 5.6 X 6.9 cm. The endometrial complex measures a maximum thickness of 1.5 cm. The bilateral adnexal regions are not well visualized. No free pelvic fluid is clearly identified. The uterine fibroids seen on the previous CT is not well visualized on today's study. Impression: 1. Technically limited study with details as above. Signer Name: Kiki Fiore MD Signed: 02/17/2019 8:37 PM Workstation Name: [id number] Transcribed By: EB Dictated By: Kiki Fiore MD Electronically Authenticated By: Kiki Fiore MD Signed Date/Time: 02/17/192036 - Medical Decision Making 58-year-old female who presented right groin pain ultrasound of the pelvic, reported above. Discussed findings with the patient. The patient received tramadol in the ED. Patient reports feeling Better and pain alleviated with the medication. Vital signs are normal patient is in no acute distress. Discussed with patient to follow up with her primary care physician/[employer] TECHNICIAN. Critical care attestation.: If time is entered above; I have spent that time in minutes in the direct care of this critically ill patient, excluding procedure time. ED Disposition Clinical Impression: Right groin pain, Uterine fibroid Disposition: DC-01 TO HOME OR SELFCARE Is pt being admited?: No Does the pt Need Aspirin: No Condition: Stable Instructions: Uterine Fibroids (ED), Chronic Pelvic Pain in Women (ED), Groin Pain (ED) Additional Instructions: Make sure to follow up with the primary care physician as discussed. Take all your medications as you've been prescribed. If you have any worsening symptoms or develop new symptoms please return to ED immediately. Prescriptions: Ibuprofen [Motrin] 800 mg PO Q8HR #30 tablet traMADol [Ultram 50 MG tab] 50 mg PO Q6HR PRN #15 tablet PRN Reason: Pain Referrals: TIMUR BENTON MD [Primary Care Provider] - 3-5 Days KAVYA MURILLO MD [Staff Physician] - 3-5 Days [facility] [Provider Group] - 3-5 Days [facility], [Provider Group] - 3-5 Days Forms: Accompanied Note, Work/School Release Form(ED) Time of Disposition: 22:20
--- NOTE | 2019-02-17 20:41 | Ultrasound Report ---
Examination: Complete nonobstetrical pelvic ultrasound, 02/17/2019 Clinical information: Right-sided pelvic pain Comparison: CT of the abdomen and pelvis, 01/19/2019 Findings: Transabdominal imaging of the pelvis was performed. Transvaginal evaluation was not performed due to patient's clinical condition. The uterus is within normal limits in size measuring 8.4 x 5.6 X 6.9 cm. The endometrial complex xena ures a maximum thickness of 1.5 cm. The bilateral adnexal regions are not well visualized. No free pelvic fluid is clearly identified. Th e uterine fibroids seen on the previous CT is not well visualized on today's study. Impression: 1. Technically limited study with details as above. Signer Name: Kiki Fiore MD Signed: 02/17/2019 8:37 PM Workstation Name: [id number]
[2019-02-17 22:24] VITALS: BP 166/93
== END 2019-02-17 22:34 | disposition home or self-care (01) ==
LOC: ED 15:52
DX: D25.9 Leiomyoma of uterus, unspecified (principal); I10 Essential (primary) hypertension; M19.90 Unspecified osteoarthritis, unspecified site; Z98.890 Other specified postprocedural states; Z79.82 Long term (current) use of aspirin; Z79.899 Other long term (current) drug therapy; Z88.8 Allergy status to other drugs, medicaments and biological substances
CPT/HCPCS: 76856; 81001; 99284

== ENCOUNTER 2019-02-22 10:36 | Outpatient (CLI) | payer MEDICAID ==
--- NOTE | 2019-02-22 12:31 | XRay Report ---
Right hip, 2 views INDICATION: M25.551, PAIN IN RIGHT HIP. COMPARISON: None. IMPRESSION: Borderline bone mineralization. Severe osteoarthritic changes are identified at both hip s. There is near complete loss of joint space, osteophytosis and subchondral cyst formation. No obvio us fracture or osteonecrosis. The soft tissues are unremarkable. Signer Name: Mello Aguilar Jr, MD Signed: 02/22/2019 12:27 PM Workstation Name: [id number]
--- NOTE | 2019-02-22 12:52 | XRay Report ---
LUMBAR SPINE, AP, LATERAL AND OBLIQUE VIEWS 02/22/2019 INDICATION / CLINICAL INFORMATION: M54.5: Low back pain. COMPARISON: None available. FINDINGS: No compression fractures. Mild degenerative disc space narrowing is seen at L L3-4, L4-5 and L5-S1. Bilateral facet joint degenerative changes are also seen at these levels. No spondylolysis. There is slight anterior subluxation of L5 on S1. Signer Name: Ino Dietz MD Signed: 02/22/2019 12:47 PM Workstation Name: [id number]
== END 2019-02-22 10:37 | disposition home or self-care (01) ==
LOC: XRAY 10:36
PROVIDERS: ATTEND Internal Medicine
DX: S33.39XA Dislocation of other parts of lumbar spine and pelvis, initial encounter (principal); M48.07 Spinal stenosis, lumbosacral region; M47.817 Spondylosis without myelopathy or radiculopathy, lumbosacral region; M16.0 Bilateral primary osteoarthritis of hip; I10 Essential (primary) hypertension; X58.XXXA Exposure to other specified factors, initial encounter; Y93.89 Activity, other specified; Y92.89 Other specified places as the place of occurrence of the external cause; Y99.8 Other external cause status
CPT/HCPCS: 72110

== ENCOUNTER 2019-10-17 10:54 | Outpatient (CLI) | payer MEDICAID ==
[2019-10-17 11:24] LABS: Basophils % (Auto) 0.5 % (0.0-1.8); Eosinophils # (Auto) 0.1 K/mm3 (0.0-0.4); Eosinophils % (Auto) 1.7 % (0.0-4.3); Hematocrit 42.1 % (30.3-42.9); Hemoglobin 14.2 gm/dl (10.1-14.3); Lymphocytes # (Auto) 2.3 K/mm3 (1.2-5.4); Lymphocytes % (Auto) 43.3 % (13.4-35.0); Mean Corpuscular HGB Conc 34 % (30-34); Mean Corpuscular Volume 88 fl (79-97); Monocytes # (Auto) 0.6 K/mm3 (0.0-0.8); Monocytes % (Auto) 11.4 % (0.0-7.3); Platelet Count 210 K/mm3 (140-440); Red Cell Distribution Width 14.4 % (13.2-15.2)
[2019-10-17 11:48] LABS: Alanine Aminotransferase 13 units/L (7-56); BUN/Creatinine Ratio 20; Blood Urea Nitrogen 16 mg/dL (7-17); Calcium 9.3 mg/dL (8.4-10.2); Chol/HDL Ratio 3.21 %; HDL Cholesterol 41 mg/dL (40-59); Hemolysis Index 3; LDL Cholesterol,Direct 88 mg/dL (50-130)
== END 2019-10-17 10:55 | disposition home or self-care (01) ==
LOC: LAB 10:54
PROVIDERS: ATTEND Internal Medicine
DX: Z00.00 Encounter for general adult medical examination without abnormal findings (principal); Z13.29 Encounter for screening for other suspected endocrine disorder; Z13.21 Encounter for screening for nutritional disorder; Z13.220 Encounter for screening for lipoid disorders; I10 Essential (primary) hypertension; R73.9 Hyperglycemia, unspecified; E66.01 Morbid (severe) obesity due to excess calories
CPT/HCPCS: 36415; 80053; 80061; 82306; 82607; 83036; 84443; 85025

== ENCOUNTER 2020-10-10 22:51 | Emergency (ER) | payer MEDICAID ==
[2020-10-11 00:52] VITALS: BP 172/88
--- NOTE | 2020-10-11 02:26 | Emergency Department Report ---
- General Chief complaint: Skin/Abscess/Foreign Body Stated complaint: SPIDER BITE ON NECK Time Seen by Provider: 10/11/20 01:09 Source: patient Mode of arrival: Ambulatory Limitations: No Limitations - History of Present Illness MD complaint: insect bite/sting (To the back of the neck but a day ago reports tenderness and redness to the area presents emergency department for treatment options and evaluation. No fever, chills, sweats. No nausea vomiting pain is dull and throbbing worse with palpation range of motion and certain movements.) -: Sudden Tetanus Up to Date: no Improves with: none Worsens with: palpation Associated symptoms: denies other symptoms Treatments Prior to Arrival: none - Related Data Previous Rx's Medication Instructions Recorded Last Taken Type Aspirin [Aspirin BABY CHEW TAB] 81 mg PO QDAY tab.chew 07/17/15 Unknown Rx Diphenhydramine HCl [Benadryl 25 mg PO TID #7 tablet 07/17/15 Unknown Rx Allergy TAB] Famotidine [Pepcid] 20 mg PO BID #60 tablet 07/17/15 Unknown Rx Furosemide [Lasix TAB] 40 mg PO QDAY #30 tablet 07/17/15 Unknown Rx HYDROcodone/APAP 5-325 [[place] 1 each PO Q6H PRN #30 tablet 07/17/15 Unknown Rx 5-325 mg TAB] Potassium Chloride [K-Dur] 10 meq PO QDAY #30 tablet 07/17/15 Unknown Rx prednisoLONE [Millipred] 10 tab PO QDAY #52 tablet 07/17/15 Unknown Rx Hyoscyamine Subl [Levsin Sl 0.125 0.125 mg SL Q6HR #12 tab 01/19/19 Unknown Rx TAB] Promethazine [Phenergan] 25 mg PO Q6HR PRN #12 tab 01/19/19 Unknown Rx HYDROcodone/APAP 5-325 [[place] 1 - 2 each PO Q6HR PRN #10 tablet 02/04/19 Unknown Rx 5/325] Meclizine [Antivert] 25 mg PO TID PRN #20 tablet 02/04/19 Unknown Rx Ondansetron [Zofran ODT TAB] 8 mg PO Q8HR #20 tab.rapdis 02/04/19 Unknown Rx Ibuprofen [Motrin] 800 mg PO Q8HR #30 tablet 02/17/19 Unknown Rx traMADoL [Ultram 50 MG tab] 50 mg PO Q6HR PRN #15 tablet 02/17/19 Unknown Rx Ibuprofen [Motrin] 800 mg PO Q8HR PRN #20 tablet 04/03/20 Unknown Rx cephALEXin [Keflex] 500 mg PO Q8HR #21 cap 10/11/20 Unknown Rx hydrOXYzine HCL [Atarax] 25 mg PO Q6HR PRN #14 tablet 10/11/20 Unknown Rx Allergies Allergy/AdvReac Type Severity Reaction Status Date / Time lisinopril AdvReac Angioedema Verified 01/19/19 12:35 Abscess Boil HPI - HPI Chief Complaint: Skin/Abscess/Foreign Body Stated Complaint: SPIDER BITE ON NECK Time Seen by Provider: 10/11/20 01:09 Home Medications: Previous Rx's Medication Instructions Recorded Last Taken Type Aspirin [Aspirin BABY CHEW TAB] 81 mg PO QDAY tab.chew 07/17/15 Unknown Rx Diphenhydramine HCl [Benadryl 25 mg PO TID #7 tablet 07/17/15 Unknown Rx Allergy TAB] Famotidine [Pepcid] 20 mg PO BID #60 tablet 07/17/15 Unknown Rx Furosemide [Lasix TAB] 40 mg PO QDAY #30 tablet 07/17/15 Unknown Rx HYDROcodone/APAP 5-325 [[place] 1 each PO Q6H PRN #30 tablet 07/17/15 Unknown Rx 5-325 mg TAB] Potassium Chloride [K-Dur] 10 meq PO QDAY #30 tablet 07/17/15 Unknown Rx prednisoLONE [Millipred] 10 tab PO QDAY #52 tablet 07/17/15 Unknown Rx Hyoscyamine Subl [Levsin Sl 0.125 0.125 mg SL Q6HR #12 tab 01/19/19 Unknown Rx TAB] Promethazine [Phenergan] 25 mg PO Q6HR PRN #12 tab 01/19/19 Unknown Rx HYDROcodone/APAP 5-325 [[place] 1 - 2 each PO Q6HR PRN #10 tablet 02/04/19 Unknown Rx 5/325] Meclizine [Antivert] 25 mg PO TID PRN #20 tablet 02/04/19 Unknown Rx Ondansetron [Zofran ODT TAB] 8 mg PO Q8HR #20 tab.rapdis 02/04/19 Unknown Rx Ibuprofen [Motrin] 800 mg PO Q8HR #30 tablet 02/17/19 Unknown Rx traMADoL [Ultram 50 MG tab] 50 mg PO Q6HR PRN #15 tablet 02/17/19 Unknown Rx Ibuprofen [Motrin] 800 mg PO Q8HR PRN #20 tablet 04/03/20 Unknown Rx cephALEXin [Keflex] 500 mg PO Q8HR #21 cap 10/11/20 Unknown Rx hydrOXYzine HCL [Atarax] 25 mg PO Q6HR PRN #14 tablet 10/11/20 Unknown Rx Allergies/Adverse Reactions: Allergies Allergy/AdvReac Type Severity Reaction Status Date / Time lisinopril AdvReac Angioedema Verified 01/19/19 12:35 ED Review of Systems ROS: Stated complaint: SPIDER BITE ON NECK Other details as noted in HPI Comment: All other systems reviewed and negative ED Past Medical Hx - Past Medical History Previous Medical History?: Yes Hx Hypertension: Yes Hx Congestive Heart Failure: No Hx Diabetes: No Hx Arthritis: Yes Hx Asthma: No Hx COPD: No Additional medical history: Obesity - Surgical History Past Surgical History?: Yes Additional Surgical History: hernia - Social History Smoking Status: Never Smoker Substance Use Type: None - Medications Home Medications: Home Medications Medication Instructions Recorded Confirmed Last Taken Type Aspirin [Aspirin BABY CHEW TAB] 81 mg PO QDAY tab.chew 07/17/15 Unknown Rx Diphenhydramine HCl [Benadryl 25 mg PO TID #7 tablet 07/17/15 Unknown Rx Allergy TAB] Famotidine [Pepcid] 20 mg PO BID #60 tablet 07/17/15 Unknown Rx Furosemide [Lasix TAB] 40 mg PO QDAY #30 tablet 07/17/15 Unknown Rx HYDROcodone/APAP 5-325 [[place] 1 each PO Q6H PRN #30 tablet 07/17/15 Unknown Rx 5-325 mg TAB] Potassium Chloride [K-Dur] 10 meq PO QDAY #30 tablet 07/17/15 Unknown Rx prednisoLONE [Millipred] 10 tab PO QDAY #52 tablet 07/17/15 Unknown Rx Hyoscyamine Subl [Levsin Sl 0.125 0.125 mg SL Q6HR #12 tab 01/19/19 Unknown Rx TAB] Promethazine [Phenergan] 25 mg PO Q6HR PRN #12 tab 01/19/19 Unknown Rx HYDROcodone/APAP 5-325 [[place] 1 - 2 each PO Q6HR PRN #10 tablet 02/04/19 Unknown Rx 5/325] Meclizine [Antivert] 25 mg PO TID PRN #20 tablet 02/04/19 Unknown Rx Ondansetron [Zofran ODT TAB] 8 mg PO Q8HR #20 tab.rapdis 02/04/19 Unknown Rx Ibuprofen [Motrin] 800 mg PO Q8HR #30 tablet 02/17/19 Unknown Rx traMADoL [Ultram 50 MG tab] 50 mg PO Q6HR PRN #15 tablet 02/17/19 Unknown Rx Ibuprofen [Motrin] 800 mg PO Q8HR PRN #20 tablet 04/03/20 Unknown Rx cephALEXin [Keflex] 500 mg PO Q8HR #21 cap 10/11/20 Unknown Rx hydrOXYzine HCL [Atarax] 25 mg PO Q6HR PRN #14 tablet 10/11/20 Unknown Rx ED Physical Exam - General Limitations: No Limitations General appearance: alert, in no apparent distress - Head Head exam: Present: atraumatic, normocephalic - Eye Eye exam: Present: normal appearance, PERRL, EOMI Pupils: Present: normal accommodation - ENT ENT exam: Present: normal exam, normal orophraynx, mucous membranes moist - Neck Neck exam: Present: normal inspection. Absent: lymphadenopathy, other (Tender subcutaneous area to the posterior neck in the area C7 indentation suggestive of an inclusion cyst.) - Respiratory Respiratory exam: Present: normal lung sounds bilaterally. Absent: respiratory distress, wheezes, rales, chest wall tenderness, accessory muscle use - Cardiovascular Cardiovascular Exam: Present: regular rate, normal rhythm. Absent: tachycardia, systolic murmur, diastolic murmur, rubs, gallop - GI/Abdominal GI/Abdominal exam: Present: soft, normal bowel sounds. Absent: tenderness, guarding, hypoactive bowel sounds, organomegaly, mass, bruit, hernia - Extremities Exam Extremities exam: Present: normal inspection, normal capillary refill - Back Exam Back exam: Present: normal inspection. Absent: CVA tenderness (R), CVA tenderness (L) - Neurological Exam Neurological exam: Present: alert, oriented X3, CN II-XII intact, normal gait - Psychiatric Psychiatric exam: Present: normal affect, normal mood - Skin Skin exam: Present: warm, dry, intact, normal color. Absent: rash ED Course Vital Signs 10/10/20 10/11/20 22:57 00:51 Temperature 98.5 F 98.1 F Pulse Rate 76 64 Respiratory 20 18 Rate Blood Pressure 173/88 Blood Pressure 172/88 [Right] O2 Sat by Pulse 99 99 Oximetry Critical care attestation.: If time is entered above; I have spent that time in minutes in the direct care of this critically ill patient, excluding procedure time. ED Disposition Clinical Impression: Insect bite Disposition: DC- TO HOME OR SELFCARE Is pt being admited?: No Does the pt Need Aspirin: No Condition: Stable Instructions: Insect Bite, Adult Additional Instructions: Please follow-up for wound wound reevaluation in 48 hours Prescriptions: hydrOXYzine HCL [Atarax] 25 mg PO Q6HR PRN #14 tablet PRN Reason: Itching cephALEXin [Keflex] 500 mg PO Q8HR #21 cap Referrals: PRIMARY CARE, [Primary Care Provider] - 3-5 Days LEANDRO QUINTEROS MD [Staff Physician] - 3-5 Days
== END 2020-10-11 02:44 | disposition home or self-care (01) ==
LOC: ED 22:51
DX: T63.301A Toxic effect of unspecified spider venom, accidental (unintentional), initial encounter (principal); I10 Essential (primary) hypertension; M19.91 Primary osteoarthritis, unspecified site; Z98.890 Other specified postprocedural states; Z79.1 Long term (current) use of non-steroidal anti-inflammatories (NSAID); Z79.899 Other long term (current) drug therapy; Z88.8 Allergy status to other drugs, medicaments and biological substances; X58.XXXA Exposure to other specified factors, initial encounter; Y93.89 Activity, other specified; Y92.89 Other specified places as the place of occurrence of the external cause; Y99.8 Other external cause status
CPT/HCPCS: 99282

== ENCOUNTER 2020-12-25 11:09 | Outpatient (CLI) | payer MEDICAID ==
--- NOTE | 2020-12-25 13:51 | XRay Report ---
RIGHT KNEE 2 VIEWS INDICATION / CLINICAL INFORMATION: RIGHT KNEE PAIN. COMPARISON: None available. FINDINGS: Moderate tricompartmental degenerative change. No other significant skeletal abnormality. Signer Name: oRger Gupta MD FACR Signed: 12/25/2020 1:47 PM Workstation Name: [id number]
--- NOTE | 2020-12-29 08:00 | Mammography Report ---
BILATERAL DIGITAL SCREENING MAMMOGRAM WITH CAD HISTORY: Screening mammogram. TECHNIQUE: Routine digital mammographic imaging performed. This examination was interpreted with daina harris benefit of Computer-aided Detection analysis. COMPARISON: 10/24/2018, 07/25/2008. FINDINGS: Breast Density: scattered fibroglandular appearance of the breast tissue. Digital CC and MLO views demonstrate no mammographic evidence of malignancy. IMPRESSION: No mammographic evidence of malignancy. If the clinical examination remains stable, recommend bilate ral mammogram in approximately one year. BIRADS 1: Negative. FURTHER INFORMATION: According to the [employer], yearly mammograms are recommend ed starting at age 40 and continuing as long as a woman is in good health. Clinical Breast Exams shou ld be part of a periodic health exam-about every 3 years for women in their 20s and 30s and every yea r for women 40 and over. Breast self exam is an option for women starting in their 20s. Any breast ch raj noted on a breast self exam should be reported promptly to the patient's healthcare provider. Br east MRI is recommended for women with an approximately 20-25% or greater lifetime risk of breast can cer, including women with a strong family history of breast or ovarian cancer and women who have been treated for Hodgkin's disease. A negative Mammography report should not discourage follow up or biopsy of a clinically significant f inding and/or abnormality. Dense breast tissue may obscure small neoplasms. The patient will be entered into a reminder system with a target due date for the next screening mamm ogram. Signer Name: Santy Sparks MD Signed: 12/29/2020 7:55 AM Workstation Name: [id number]
== END 2020-12-25 11:10 | disposition home or self-care (01) ==
LOC: MAMMO 11:09
PROVIDERS: ATTEND Internal Medicine
DX: Z12.31 Encounter for screening mammogram for malignant neoplasm of breast (principal); M17.11 Unilateral primary osteoarthritis, right knee
CPT/HCPCS: 77067

== ENCOUNTER 2021-11-05 12:01 | Outpatient (CLI) | payer MEDICAID ==
--- NOTE | 2021-11-05 14:37 | XRay Report ---
BILATERAL KNEE SINGLE STANDING VIEW INDICATION / CLINICAL INFORMATION: M17.0, PRIMARY OSTEOARTHRITIS OF KNEE COMPARISON: Radiographs dated 12/25/2020 FINDINGS: BONES / JOINT(S): Right knee: There is severe DJD of the right lateral femorotibial compartment and moderate DJD of the medial femorotibial compartment. No acute displaced fracture. These findings have progressed since r adiographs performed in December 2020. Left knee: Mild DJD of the medial and lateral femorotibial compartments. No acute displaced fracture. SOFT TISSUES: No significant abnormality. ADDITIONAL FINDINGS: None. Signer Name: Rex Puente MD Signed: 11/05/2021 2:33 PM Workstation Name: [email or web address]
--- NOTE | 2021-11-05 14:52 | XRay Report ---
HIPS BILATERAL WITH PELVIS 3 VIEWS INDICATION: M16.0, PRIMARY OSTEOARTHRITIS OF HIP. COMPARISON: 02/22/2019 IMPRESSION: Severe end-stage osteoarthritic changes are identified at both hips. No overwhelming flor nge is demonstrated since 2019. SI joints are unremarkable. No acute osseous abnormality or bone les ion is appreciated. Signer Name: Mello Aguilar Jr, MD Signed: 11/05/2021 2:48 PM Workstation Name: [id number]
== END 2021-11-05 12:02 | disposition home or self-care (01) ==
LOC: XRAY 12:01
PROVIDERS: ATTEND Orthopaedic Surgery
DX: M16.0 Bilateral primary osteoarthritis of hip (principal); M17.0 Bilateral primary osteoarthritis of knee
CPT/HCPCS: 73521; 73565

== ENCOUNTER 2021-12-30 05:46 | Inpatient (IN) | payer MEDICAID ==
[2021-12-27 10:22] LABS: Hematocrit 41.7 % (30.3-42.9); Hemoglobin 13.5 gm/dl (10.1-14.3); Mean Corpuscular HGB Conc 32 % (30-34); Mean Corpuscular Volume 88 fl (79-97); Platelet Count 215 K/mm3 (140-440); Red Blood Count 4.74 M/mm3 (3.65-5.03); Red Cell Distribution Width 15.3 % (13.2-15.2)
[2021-12-27 10:44] LABS: BUN/Creatinine Ratio 23; Blood Urea Nitrogen 18 mg/dL (7-17); Calcium 9.4 mg/dL (8.4-10.2); Hemolysis Index 3
--- NOTE | 2021-12-27 11:11 | Anesthesia Consultation ---
Anesthesia Consult and Med Hx Date of service: 12/30/21 - Airway Anesthetic Teeth Evaluation: Good, Partials (upper incisor flipper) ROM Head & Neck: Adequate Mental/Hyoid Distance: Adequate Mallampati Class: Class II Intubation Access Assessment: Probably Good - Pulmonary Exam CTA: Yes - Cardiac Exam Cardiac Exam: RRR - Pre-Operative Health Status ASA Pre-Surgery Classification: ASA3 Proposed Anesthetic Plan: General - Pulmonary Hx Smoking: No Hx Respiratory Symptoms: No - Cardiovascular System Hx Hypertension: Yes Hx Heart Attack/AMI: No Hx Cardia Arrhythmia: No - Central Nervous System CVA: No Hx Psychiatric Problems: Yes (depression) - Endocrine Hx Renal Disease: No Hx Liver Disease: No Hx Insulin Dependent Diabetes: No Hx Non-Insulin Dependent Diabetes: No Hx Thyroid Disease: No - Other Systems Hx Obesity: Yes (BMI 48) - Additional Comments Anesthesia Medical History Comments: No hx anesthetic complications. Recent preop cardiology eval on chart. Notes recent normal TTE (no report attached).
--- OUTSIDE RECORDS SUMMARY | 2021-12-30 05:54 | External Medical Summary ---
:1960 Author Organization [facility], [facility] Address [address] [place] [address] Care Team Providers Name Role Phone Carlos Unavailable [phone] PROBLEMS Type Condition ICD9-CM [id number] Onset Condition W/U Status Risk SNOM ED Notes Code Code Dates Status Code Problem Essential I10 Active confirmed 89272241 (primary) hypertension Problem Hypertensive I16.9 Active confirmed 5573544 09 crisis, unspecified Problem Morbid E66.01 Active confirmed 930656481 (severe) obesity due to excess calories Problem Rheumatoid M05.9 Active confirmed 570775212 1 arthritis 60126 with rheumatoid factor, unspecified Problem Polyosteoarth M15.9 Active confirmed 524382 006 ritis, unspecified Problem Gastro-esopha K21.9 Active confirmed 620010 005 geal reflux disease without esophagitis Problem Peripheral I73.9 Active confirmed 067383704 vascular disease, unspecified Problem Hyperlipidemi E78.5 Active confirmed 602117 04 a, unspecified Problem Prediabetes R73.03 Active confirmed 74744703 2 Problem Polyarthritis M13.0 Active confirmed 474620 002 , unspecified Problem Bilateral M16.0 Active confirmed 501706032 primary osteoarthriti s of hip Problem Major F33.9 Active confirmed 29233695 depressive disorder, recurrent, unspecified Problem Primary M15.0 Active confirmed 166969679 generalized (osteo)arthri tis Problem Vitamin D E55.9 Active confirmed 29305199 deficiency, unspecified Problem Gout, M10.9 Active confirmed 05129132 unspecified Problem Unilateral M17.11 Active confirmed 573426579 primary osteoarthriti s, right knee Problem Bilateral M17.0 Active confirmed 585217833 primary osteoarthriti s of knee Problem Unilateral M16.11 Active confirmed 479335477 primary osteoarthriti s, right hip ALLERGIES Allergen (clinical Drug/Non Drug Reaction Allergy Type Onset Date S tatus drug ingredient) Allergy documented on EMR lisinopril Lisinopril([facility] anaphylaxis Drug Allergy Active Code:[address]-11) ENCOUNTERS from 1960 to 2021-12-29 Encounter Location Date Provider Diagnosis [facility] [address] [facility] Dec, Jonathan [facility]id [facility] [place] [address] IMMUNIZATIONS No Information SOCIAL HISTORY Sex Assigned At : Social History Observation Description Sex Assigned At Unknown REASON FOR REFERRAL from 1960 to 2021-12-29 Reason RIGHT THR Diagnosis 1 Essential (primary) hyperten linda (I10) Diagnosis 2 Gastro-esophageal reflux dis ease without esophagitis (K21.9) Diagnosis 3 Major depressive disorder, r ecurrent, unspecified (F33.9) Diagnosis 4 Primary generalized (osteo)a rthritis (M15.0) Diagnosis 5 Vitamin D deficiency, unspec ified (E55.9) Diagnosis 6 Hyperlipidemia, unspecified (E78.5) Diagnosis 7 Prediabetes (R73.03) Diagnosis 8 Pain in right knee (M25.561) Diagnosis 9 Morbid (severe) obesity due to excess calories (E66.01) Diagnosis 10 Gout, unspecified (M10.9) Diagnosis 11 Polyarthritis, unspecified ( M13.0) Diagnosis 12 Peripheral vascular disease, unspecified (I73.9) Diagnosis 13 Bilateral primary osteoarthr itis of hip (M16.0) Diagnosis 14 Unilateral primary osteoarth ritis, right hip (M16.11) Diagnosis 15 Bilateral primary osteoarthr itis of knee (M17.0) Diagnosis 16 Pain in right hip (M25.551) Diagnosis 17 Hypertensive crisis, unspeci fied (I16.9) Referral Organization [facility] Referring Provider First Name Jonathan Referring Provider Last Name Carlos Referring Provider Specialty Orthopedic Surgery Referred Provider [facility], - Referral Priority Routine VITAL SIGNS No information MEDICATIONS Medication SIG (Take, Route, Notes Start Date End Date Status Frequency, Duration) Famotidine 20 MG 1 tablet at bedtime Active as needed Orally Once a day for 30 day(s) DermOtic 0.01 % 5 drops into affected November, Active ear Otic Twice a day for 5 days Metoprolol Succinate ER 1 tablet Orally Once Active 50 MG a day for 90 days amLODIPine Besylate 5 MG 1 tablet Orally Once Active a day for 90 days Hydrochlorothiazide-25 mg 1 tablet in the Active 25 MG morning Orally Once a day for 90 days Cane - 1 Cane Once for Mar, A ctive days Classics Rolling Walker - as directed Dec, Active Escitalopram Oxalate 5 MG 1 tablet Orally Once Active a day for 90 days Escitalopram Oxalate 5 MG 1 tablet Orally Once Active a day for 90 days Vitamin D 1 capsule Orally once Act gordon (Ergocalciferol) 1.25 MG a week for 90 days (91927 UT) Blood Pressure Monitor - 1 device Invitro Once Mar, Active for 567713 days Cyanocobalamin 1000 MCG 1 tablet Orally Once Sep, Feb, Active a day for 90 days Meclizine HCl 50 MG 1 tablet as needed November, Active Orally Once a day for 15 days Colchicine 0.6 MG 1 capsule Orally Once Sep,2021 Active a day for 90 days PROCEDURES No Information RESULTS No Results REASON FOR VISIT jerilyn MEDICAL (GENERAL) HISTORY Type Description Date Medical History hypertension Medical History edema of legs Surgical History Umbilical hernia hernia repair in two oc casions 2004 and 2008 Hospitalization History SAME ABOVE Goals Section No Information Health Concerns No Information MEDICAL EQUIPMENT No Information MENTAL STATUS No Information FUNCTIONAL STATUS No Information ASSESSMENTS No Information PLAN OF TREATMENT Referrals Referral Date Details RIGHT THR Next Appt Details Provider Name:Jonathan Gonzalez, 2021-12-29 03:30:00 PM, [address], [place], [place], [address], Provider Name:Jonathan Gonzalez 2021-12-30 07:30:00 AM, [address] [place], [address], Provider Name:Jonathan Gonzalez 2021-12-30 08:00:00 AM, [address] [place], [address], Provider Name:Ramone Gutiérrez, 2-0 01-18 09:00:00 AM, [address], [address], [place], [address], Insurance Providers Payer Name Payer Payer Insured Patient Coverage Coverage Subscriber Group Address Phone Name Relationship Start End Date Number Nu mber to Insured Date Medicaid [id number] DEZ CHOWDHURY self [id number] [phone] NICOLA [address] [facility] [phone]
[2021-12-30] MEDS ORDERED: MIDAZOLAM 2 MG/2 ML INJ IV NR (06:00)
[2021-12-30] MEDS ORDERED: ceFAZolin/STERILE WATER 2 GM/20 ML SYRINGE IV NR (06:00)
[2021-12-30] MEDS ORDERED: CELECOXIB 200 MG CAP PO NR (06:00)
[2021-12-30] MEDS ORDERED: GABAPENTIN 300 MG CAP PO NR (06:00)
[2021-12-30] MEDS ORDERED: ACETAMINOPHEN 500 MG TAB PO SCH (06:00)
[2021-12-30] MEDS ORDERED: propofoL 200 MG/20 ML VIAL IV ONE (07:34)
[2021-12-30] MEDS ORDERED: HYDROmorphone 1 MG/1 ML INJ ONE (07:34)
[2021-12-30] MEDS: LACTATED RINGERS 1,000 ML IV SCH ×2 (07:35→18:09)
[2021-12-30] MEDS ORDERED: KETOROLAC 30 MG/1 ML INJ ONE (07:38)
[2021-12-30] MEDS ORDERED: BUPIVACAINE/PF (0.5%) 5 MG/1 ML 10 ML VIAL INFILTRATI ONE ×2 (07:38→09:14)
[2021-12-30] MEDS ORDERED: SODIUM CHLORIDE 0.9% 100 ML ONE (07:39)
[2021-12-30] MEDS ORDERED: MORPHINE 10 MG/1 ML INJ ONE (07:39)
[2021-12-30] MEDS ORDERED: SODIUM CHLORIDE 0.9% 50 ML ONE (07:39)
[2021-12-30] MEDS ORDERED: dexAMETHasone 4 MG/ML VIAL ONE (07:42)
[2021-12-30] MEDS ORDERED: LIDOCAINE (1%) 10 MG/1 ML VIAL 20 ML MDV ONE (07:42)
[2021-12-30] MEDS ORDERED: BUPIVACAINE-EPINEPHRINE/PF 0.25%-1:200,000 (30 ML) VIAL INFILTRATI ONE (07:42)
[2021-12-30] MEDS ORDERED: fentaNYL 100 MCG/2 ML INJ ONE (07:42)
[2021-12-30] MEDS ORDERED: HYDROmorphone 0.5 MG/0.5 ML INJ IV PRN (08:15)
[2021-12-30] MEDS ORDERED: ONDANSETRON 4 MG/2 ML INJ IV PRN (08:15)
--- NOTE | 2021-12-30 08:15 | Anesthesia Day of Surgery ---
Anesthesia Day of Surgery - Day of Surgery Patient Examined: Yes Patient H&P Reviewed: Yes Patient is NPO: Yes
[2021-12-30] MEDS ORDERED: ANTICOAGULANT SOD CITRATE SOLUTION MC ONE ×2 (08:46→09:16)
[2021-12-30] MEDS ORDERED: KETOROLAC 30 MG/1 ML INJ IM ONE (09:14)
[2021-12-30] MEDS ORDERED: SODIUM CHLORIDE 0.9% 100 ML IVPB IV ONE (09:15)
[2021-12-30] MEDS ORDERED: SODIUM CHLORIDE 0.9% 50 ML IVPB IV ONE (09:15)
[2021-12-30] MEDS ORDERED: MORPHINE 10 MG/1 ML INJ IM ONE (09:15)
[2021-12-30] MEDS ORDERED: SODIUM CHLORIDE 0.9% IRR 1,500 ML BOTTLE IR ONE (09:16)
[2021-12-30] MEDS ORDERED: SODIUM CHLORIDE 0.9% IRRIG SOLN 2000 ML IR ONE (09:16)
[2021-12-30] MEDS ORDERED: LIDOCAINE MPF (2%) 20 MG/1 ML VIAL 5 ML ONE (09:32)
[2021-12-30] MEDS ORDERED: ONDANSETRON 4 MG/2 ML INJ ONE ×2 (09:32→11:24)
[2021-12-30] MEDS ORDERED: dexAMETHasone 20 MG/5 ML VIAL ONE (09:32)
[2021-12-30] MEDS ORDERED: VANCOMYCIN 1000 MG INJ ONE (09:42)
[2021-12-30] MEDS ORDERED: SODIUM CHLORIDE P/F VIAL 10 ML 0 ML ONE (09:43)
[2021-12-30] MEDS ORDERED: VANCOMYCIN 1,000 MG/20 ML IV ONE (09:45)
--- NOTE | 2021-12-30 10:20 | Procedure Note ---
Date of procedure: 12/30/21 Pre-op diagnosis: Severe arthritis right hip Post-op diagnosis: same Procedure: Left total hip replacement Procedure The patient was brought to the OR and placed in the OR table in the supine position following induction intubation by anesthesia the patient's was turned into the left lateral decubitus position care was taken to protect the bony areas and a axillary roll was used and the right axilla. Right hip and thigh were then prepped and draped in the usual sterile manner. A timeout procedure was done to identify the patient and the correct operative site. Using the lateral approach incision was taken down through skin and subcutaneous the f ascia cynthia was incised A Charnley retractor was placed deep within the wound care was taken to enter the anterior hip capsule by the vastus lateralis and the gluteus medius tendons in the knee was flexed and internally rotated which brought us upon the anterior portion of the hip joint using a small broach and osteotomy was performed on the femoral neck approximately 2 cm to centimeters proximal to the lesser trochanter. Using Vogel retractors the the acetabular structures were evaluated the patient was noted to have some moderate changes within the acetabulum reaming was begun starting with a 45 mm diameter and advancing up to a 52 mm cup was taken to the observed bleeding bone within the acetabulum nicely 52 mm cup was inserted care was taken to maintain the proper version that being 45 abduction and 20 of anteversion and a small screw was used to stabilize this acetabular component next attention was turned to the proximal femur using a cookie cutter and the proximal femoral canal was entered this was then reamed and broached to a #5 stem And the hip joint was then reduced using a 30 neutral neck and a 32 mm head hip was reduced taken through a range of motion and was found to be stable Trial component was removed and the hip joint was then copiously irrigated the final components were inserted that being a #5 femoral stem with a 32 mm head again the hip joint was reduced and was taken through a range of motion and found stable. He was closed in a standard routine fashion. Dressings were applied the patient tolerated the procedure and there were no complications he was taken to postanesthesia recovery stable Anesthesia: GETA Surgeon: KAVYA MURILLO (Kojo Toth, 1st assist) Estimated blood loss: other (300cc) Pathology: list (Portions of the right femoral head and neck were sent to pathology) Specimen disposition: to lab Condition: stable Disposition: PACU
[2021-12-30] MEDS ORDERED: LACTATED RINGERS 1,000 ML ONE (10:35)
[2021-12-30] MEDS ORDERED: IBUPROFEN 600 MG TAB PO PRN (11:00)
--- NOTE | 2021-12-30 12:02 | XRay Report ---
RIGHT HIP 2 VIEW(S) INDICATION / CLINICAL INFORMATION: post op evaluation, s/p right THR COMPARISON: None available. FINDINGS: Hip arthroplasty has been placed with satisfactory postoperative radiographic appearance. Signer Name: Rey Weiss MD Signed: 12/30/2021 11:53 AM Workstation Name: [id number] [id number]
--- NOTE | 2021-12-30 12:02 | Post Anesthesia Evaluation ---
- Post Anesthesia Evaluation Patient Participated: Yes Airway Patent: Yes Stable Respiratory Function: Yes Nausea/Vomiting: No Temp > 96.8F: Yes Pain Manageable: Yes Adequeate Hydration: Yes Anesthesia Complications: No Other Comments: OK for transfer to floor pending bed availability.
[2021-12-30] MEDS: ceFAZolin/NS 1 GM/50 ML 1 GM/50 ML BAG IV SCH (18:09)
[2021-12-30] MEDS: KETOROLAC 30 MG/1 ML INJ IV PRN (18:10)
[2021-12-30] MEDS: MORPHINE 4 MG/1 ML INJ IV PRN (22:59)
[2021-12-31] MEDS: ceFAZolin/NS 1 GM/50 ML 1 GM/50 ML BAG IV SCH (00:34)
[2021-12-31] MEDS: MORPHINE 4 MG/1 ML INJ IV PRN ×3 (03:37→17:31)
[2021-12-31 05:51] LABS: Hematocrit 32.8 % (30.3-42.9); Hemoglobin 10.7 gm/dl (10.1-14.3)
[2021-12-31] MEDS: KETOROLAC 30 MG/1 ML INJ IV PRN (06:03)
[2021-12-31] MEDS: ENOXAPARIN 40 MG/0.4 ML INJ SUB-Q SCH (11:13)
--- NOTE | 2021-12-31 14:35 | Progress Note ---
Assessment and Plan s/p right total hip replacement continue PT and rehab... Subjective Date of service: 12/31/21 Interval history: c/o incisional pain, otherwise ok... Objective Vital signs: Vital Signs - 12hr 12/31/21 12/31/21 12/31/21 04:51 09:35 10:22 Temperature 98.7 F Pulse Rate 89 97 H Respiratory 16 18 Rate Blood Pressure 120/67 150/81 O2 Sat by Pulse 98 100 96 Oximetry 12/31/21 12/31/21 10:23 10:30 Temperature 98.2 F Pulse Rate Respiratory Rate Blood Pressure O2 Sat by Pulse 100 Oximetry - Labs CBC & BMP: 12/31/21 05:36 12/27/21 Unknown
[2021-12-31] MEDS: HYDROcodone/ACETAMINOPHEN 7.5-325MG TAB PO PRN (21:55)
[2022-01-01] MEDS: KETOROLAC 30 MG/1 ML INJ IV PRN (04:54)
[2022-01-01] MEDS: ENOXAPARIN 40 MG/0.4 ML INJ SUB-Q SCH (09:01)
[2022-01-01] MEDS: HYDROcodone/ACETAMINOPHEN 7.5-325MG TAB PO PRN ×2 (14:38→23:25)
[2022-01-02] MEDS: MORPHINE 4 MG/1 ML INJ IV PRN ×2 (05:27→17:29)
[2022-01-02] MEDS: KETOROLAC 30 MG/1 ML INJ IV PRN ×2 (06:29→23:23)
[2022-01-02] MEDS: HYDROcodone/ACETAMINOPHEN 7.5-325MG TAB PO PRN ×2 (10:51→22:20)
[2022-01-02] MEDS: ENOXAPARIN 40 MG/0.4 ML INJ SUB-Q SCH (10:52)
--- NOTE | 2022-01-02 13:25 | Consultation ---
History of Present Illness - Reason for Consult Consult date: 01/02/22 Medical Management Requesting physician: KAVYA GONZALEZ - History of Present Illness 61 YO Female with HTN, Obesity Hypoventilation Syndrome, OA, Metabolic Syndrome. Consult placed by Dr. Gonzalez for medical management. Patient seen and evaluated in her room. Patient resting comfortably. Patient denies uncontrolled pain. No reported nursing events. Past History Past Medical History: arthritis, hypertension, other (See HPI) Past Surgical History: total hip replacement Social history: single. denies: smoking, alcohol abuse, prescription drug abuse Family history: diabetes, hypertension Medications and Allergies Allergies Allergy/AdvReac Type Severity Reaction Status Date / Time lisinopril AdvReac Angioedema Verified 01/19/19 12:35 Home Medications Medication Instructions Recorded Confirmed Last Taken Type Amlodipine Besylate [Norvasc] 5 mg PO DAILY 12/22/21 12/22/21 Unknown History Metoprolol Xl [Metoprolol 50 mg PO QDAY 12/22/21 12/22/21 Unknown History SUCCINATE ER TAB] cycloSPORINE [Restasis] 1 drop OU BID 12/22/21 12/22/21 Unknown History hydroCHLOROthiazide [HCTZ] 25 mg PO QDAY 12/22/21 12/22/21 Unknown History Cyanocobalamin (Vitamin B-12) 1,000 mcg PO QDAY 12/31/21 12/31/21 1 Week Ago History [Vitamin B-12] ~12/24/21 Meclizine [Antivert] 25 mg PO QDAY PRN 12/31/21 12/31/21 Unknown History Active Meds: Active Medications Hydrocodone Bitart/Acetaminophen (Hydrocodone/Acetaminophen 7.5-325mg Tab) 1 each PO Q6H PRN PRN Reason: Pain, Moderate (4-6) Last Admin: 01/02/22 10:51 Dose: 1 each Enoxaparin Sodium (Enoxaparin 40 Mg/0.4 Ml Inj) 40 mg SUB-Q QDAY MITCHELL Last Admin: 01/02/22 10:52 Dose: 40 mg Ibuprofen (Ibuprofen 600 Mg Tab) 600 mg PO Q6H PRN PRN Reason: Pain, Mild (1-3) Ketorolac Tromethamine (Ketorolac 30 Mg/1 Ml Inj) 15 mg IV Q6H PRN PRN Reason: Pain, Moderate (4-6) Stop: 01/04/22 11:29 Last Admin: 01/02/22 06:29 Dose: 15 mg Morphine Sulfate (Morphine 4 Mg/1 Ml Inj) 4 mg IV Q4H PRN PRN Reason: Pain , Severe (7-10) Last Admin: 01/02/22 05:27 Dose: 4 mg Sodium Chloride (Sodium Chloride 0.9% 10 Ml Flush Syringe) 10 ml IV PRN NR Stop: 01/11/22 10:59 Review of Systems Constitutional: no weight loss, no weight gain, no fever, no chills Ears, nose, mouth and throat: no ear discharge, no tinnitis, no nose pain Breasts: no change in shape, no swelling, no mass Cardiovascular: no chest pain, no orthopnea, no palpitations, no rapid/irregular heart beat, no lightheadedness Respiratory: no cough, no cough with sputum, no shortness of breath Gastrointestinal: no abdominal pain, no nausea, no vomiting, no hematemesis Genitourinary Female: no pelvic pain, no flank pain, no dysuria, no urinary frequency, no urgency Rectal: no pain, no incontinence, no bleeding Musculoskeletal: no neck stiffness, no neck pain, no shooting arm pain, no low back pain Integumentary: no rash, no pruritis, no wounds, no jaundice Neurological: no head injury, no weakness, no parathesias, no numbness, no tingling, no tremors Psychiatric: no anxiety, no memory loss, no sleep disturbances, no change in libido Endocrine: no cold intolerance, no heat intolerance, no polyphagia, no excessive thirst, no polydipsia, no polyuria Hematologic/Lymphatic: no easy bruising, no easy bleeding Allergic/Immunologic: no allergic rhinitis, no wheezing Exam - Constitutional Vitals: Temp Pulse Resp BP Pulse Ox 98.6 F 89 18 123/76 98 01/02/22 11:39 01/02/22 11:39 01/02/22 11:39 01/02/22 11:39 01/02/22 11:39 General appearance: Present: no acute distress - EENT Eyes: Present: PERRL ENT: hearing intact, clear oral mucosa - Neck Neck: Present: supple, normal ROM - Respiratory Respiratory effort: normal Respiratory: bilateral: diminished - Cardiovascular Heart Sounds: Present: S1 & S2. Absent: rub, click - Extremities Extremities: pulses symmetrical, No edema Peripheral Pulses: within normal limits - Abdominal General gastrointestinal: Present: soft, non-tender, non-distended, normal bowel sounds Female genitourinary: Present: normal - Integumentary Integumentary: Present: clear, warm, dry - Musculoskeletal Musculoskeletal: gait normal, strength equal bilaterally - Psychiatric Psychiatric: appropriate mood/affect, intact judgment & insight - Neurologic Neurologic: CNII-XII intact, moves all extremities Results - Labs CBC & Chem 7: 12/31/21 05:36 12/27/21 Unknown Assessment and Plan - Patient Problems (1) Hypertension Current Visit: Yes Status: Acute Qualifiers: Hypertension type: primary hypertension Qualified Code(s): I10 - Essential (primary) hypertension Plan to address problem: Monitor blood pressure every shift, continue medical management, resume prehospital antihypertensive therapy. (2) Osteoarthritis Current Visit: Yes Status: Acute Plan to address problem: Pain control, supportive care. (3) Obesity hypoventilation syndrome Current Visit: Yes Status: Acute Plan to address problem: Balanced diet, increase physical activity discharge, outpatient pulmonary follow-up for sleep study. Outpatient bariatric surgery consult. (4) Metabolic syndrome Current Visit: Yes Status: Acute Plan to address problem: Balanced diet, meal planning, increase physical activity at discharge as tolerated, weight reduction, risk factor reduction. (5) Advance care planning Current Visit: Yes Status: Acute Plan to address problem: Disease education data, care plan discussed, diagnoses discussed, prognosis discussed, patient is full code. Patient knowledges understanding and agreement with care plan, +30 minutes. (6) Preventative health care Current Visit: Yes Status: Acute Plan to address problem: Patient counseled regarding balanced diet, weight reduction, cardiac risk factor reduction, low-cholesterol diet, outpatient follow-up with primary care physician for all age and risk factor appropriate screening tests. +30 minutes.
[2022-01-02] MEDS ORDERED: MECLIZINE 25 MG TAB PO PRN (13:26)
[2022-01-02] MEDS ORDERED: CYCLOSPORINE OP SCH (22:00)
[2022-01-02] MEDS ORDERED: SIMETHICONE 80 MG CHEW TAB PO PRN (22:15)
[2022-01-03] MEDS: HYDROcodone/ACETAMINOPHEN 7.5-325MG TAB PO PRN ×2 (06:57→13:40)
[2022-01-03] MEDS: ENOXAPARIN 40 MG/0.4 ML INJ SUB-Q SCH (09:06)
--- NOTE | 2022-01-03 09:35 | Progress Note ---
Assessment and Plan Assessment and plan: 61 YO Female with HTN, Obesity Hypoventilation Syndrome, OA, Metabolic Syndrome. Consult placed by Dr. Gonzalez for medical management. Right total hip replacement hypertension Osteoarthritis Obesity hypoventilation syndrome 01/03/2022. Continue physical therapy per protocol. Orthopedics following. Blood pressures well controlled. Pain controlled. Discharge planning. History Interval history: No new issues overnight Hospitalist Physical - Constitutional Vitals: Temp Pulse Resp BP Pulse Ox 97.6 F 96 H 20 119/52 97 01/03/22 05:45 01/03/22 08:54 01/03/22 05:45 01/03/22 08:53 01/03/22 08:54 General appearance: Present: no acute distress Results - Labs CBC & Chem 7: 12/31/21 05:36 12/27/21 Unknown Labs: Laboratory Last Values WBC 5.6 K/mm3 (4.5-11.0) 12/27/21 Unknown RBC 4.74 M/mm3 (3.65-5.03) 12/27/21 Unknown Hgb 10.7 gm/dl (10.1-14.3) 12/31/21 05:36 Hct 32.8 % (30.3-42.9) 12/31/21 05:36 MCV 88 fl (79-97) 12/27/21 Unknown MCH 29 pg (28-32) 12/27/21 Unknown MCHC 32 % (30-34) 12/27/21 Unknown RDW 15.3 % (13.2-15.2) H 12/27/21 Unknown Plt Count 215 K/mm3 (140-440) 12/27/21 Unknown Sodium 142 mmol/L (137-145) 12/27/21 Unknown Potassium 3.3 mmol/L (3.6-5.0) L 12/27/21 Unknown Chloride 104.0 mmol/L (98-107) 12/27/21 Unknown Carbon Dioxide 28 mmol/L (22-30) 12/27/21 Unknown Anion Gap 13 mmol/L 12/27/21 Unknown BUN 18 mg/dL (7-17) H 12/27/21 Unknown Creatinine 0.8 mg/dL (0.6-1.2) 12/27/21 Unknown Estimated GFR > 60 ml/min 12/27/21 Unknown BUN/Creatinine Ratio 23 % 12/27/21 Unknown Glucose 100 mg/dL (65-100) 12/27/21 Unknown Calcium 9.4 mg/dL (8.4-10.2) 12/27/21 Unknown SARS-CoV-2 (PCR) Negative (Negative) 12/27/21 09:50 Blood Type O POSITIVE 12/30/21 07:05 Antibody Screen Negative 12/30/21 07:05 Sunshine/IV: Voiding Method External Female Catheter Active Medications - Current Medications Current Medications: Generic Name Dose Route Start Last Admin Trade Name Freq PRN Reason Stop Dose Admin Hydrocodone Bitart/Acetaminophen 1 each 12/31/21 18:59 01/03/22 06:57 Hydrocodone/Acetaminophen 7.5-325mg Tab PO 1 each Q6H PRN Administration Pain, Moderate (4-6) Amlodipine Besylate 5 mg 01/03/22 10:00 01/03/22 09:08 Amlodipine 5 Mg Tab PO Not Given DAILY [facility] Cyanocobalamin 1,000 mcg 01/03/22 10:00 01/03/22 09:06 Cyanocobalamin (Vit B-12) 1000 Mcg Tab PO 1,000 mcg QDAY [facility] Administration Enoxaparin Sodium 40 mg 12/31/21 10:00 01/03/22 09:06 Enoxaparin 40 Mg/0.4 Ml Inj SUB-Q 40 mg QDAY [facility] Administration Hydrochlorothiazide 25 mg 01/03/22 10:00 01/03/22 09:08 Hydrochlorothiazide 25 Mg Tab PO Not Given QDAY [facility] Ibuprofen 600 mg 12/30/21 11:00 Ibuprofen 600 Mg Tab PO Q6H PRN Pain, Mild (1-3) Ketorolac Tromethamine 15 mg 12/30/21 11:30 01/02/22 23:23 Ketorolac 30 Mg/1 Ml Inj IV 01/04/22 11:29 15 mg Q6H PRN Administration Pain, Moderate (4-6) Meclizine HCl 25 mg 01/02/22 13:26 Meclizine 25 Mg Tab PO QDAY PRN Vertigo Metoprolol Succinate 50 mg 01/03/22 10:00 01/03/22 09:08 Metoprolol Succinate Xl 50 Mg Tab PO Not Given QDAY [facility] Miscellaneous Medication 1 drop 01/02/22 22:00 Cyclosporine [Restasis] OP BID [facility] Morphine Sulfate 4 mg 12/30/21 11:00 01/02/22 17:29 Morphine 4 Mg/1 Ml Inj IV 4 mg Q4H PRN Administration Pain , Severe (7-10) Simethicone 80 mg 01/02/22 22:15 01/02/22 23:26 Simethicone 80 Mg Chew Tab PO 80 mg Q6H PRN Administration Gas pain Sodium Chloride 10 ml 12/30/21 11:00 Sodium Chloride 0.9% 10 Ml Flush Syringe IV 01/11/22 10:59 PRN NR
[2022-01-03] MEDS ORDERED: hydroCHLOROthiazide 25 MG TAB PO SCH (10:00)
[2022-01-03] MEDS ORDERED: METOPROLOL SUCCINATE XL 50 MG TAB PO SCH (10:00)
[2022-01-03] MEDS ORDERED: CYANOCOBALAMIN (VIT B-12) 1000 MCG TAB PO SCH (10:00)
[2022-01-03] MEDS ORDERED: amLODIPine 5 MG TAB PO SCH (10:00)
--- NOTE | 2022-01-03 13:24 | Discharge Summary ---
Providers - Providers Date of Admission: 12/30/21 05:46 Date of discharge: 01/03/22 Attending physician: KAVYA MURILLO MD 12/30/21 10:10 Consult to Case Management [CONS] Routine Services Needed at Discharge: Other Notified:: yes Additional Physician Instructions: Assess Discharge needs. Physical Therapy Evaluation and Treat [CONS] Routine Comment: post op evaluation Reason For Exam: Eval and Treat Weight bearing status?: Full wt bearing Assistive devices?: Yes If so list: Walker Primary care physician: TIMUR BENTON Hospitalization Condition: Stable Disposition: [facility]PAT[facility]ACILITY Exam - Constitutional Vitals: Temp Pulse Resp BP Pulse Ox 97.6 F 96 H 20 119/52 99 01/03/22 05:45 01/03/22 08:54 01/03/22 10:00 01/03/22 08:53 01/03/22 10:42 Plan Follow up with: TIMUR BENTON MD [Primary Care Provider] - 7 Days
[2022-01-03 18:44] VITALS: BP 134/87
== END 2022-01-03 19:55 | DRG 470 ==
LOC: 3A 05:46
PROVIDERS: ADMIT Orthopaedic Surgery; ATTEND Orthopaedic Surgery
PROC: 0SR90JZ Replacement of Right Hip Joint with Synthetic Substitute, Open Approach (ICD-10-PCS; principal; 2021-12-30)
DX: M16.0 Bilateral primary osteoarthritis of hip (principal); E66.2 Morbid (severe) obesity with alveolar hypoventilation; Z68.42 Body mass index [BMI] 45.0-49.9, adult; Z20.822 Contact with and (suspected) exposure to COVID-19; I10 Essential (primary) hypertension; E88.81 Metabolic syndrome and other insulin resistance; F32.A Depression, unspecified; Z83.3 Family history of diabetes mellitus; Z79.899 Other long term (current) drug therapy; Z82.49 Family history of ischemic heart disease and other diseases of the circulatory system; Z88.8 Allergy status to other drugs, medicaments and biological substances
CPT/HCPCS: 36415; 80048; 85014; 85018; 85027; 86850; 86900; 86901; 88304; 88311; G0378; J3490; C1776; J0690; J1100; J1170; J1650; J1885; J2270; J2405; J2704; J3010; J3370; J7120; U0003

== ENCOUNTER 2022-02-09 19:23 | Emergency (ER) | payer MEDICAID ==
[2022-02-09 20:33] VITALS: BP 123/81
[2022-02-09] MEDS ORDERED: MORPHINE 4 MG/1 ML INJ IV ONE (21:43)
[2022-02-09] MEDS ORDERED: ONDANSETRON 4 MG/2 ML INJ IV ONE (21:43)
[2022-02-09] MEDS ORDERED: ACETAMINOPHEN 325 MG TAB PO ONE (21:44)
[2022-02-09] MEDS ORDERED: PANTOPRAZOLE 40 MG INJ IV ONE (21:44)
--- NOTE | 2022-02-09 21:46 | Emergency Department Report ---
ED General Adult HPI - General Chief complaint: Extremity Injury, Upper Stated complaint: BLOOD CLOT IN LEGS/CHEST PAIN PUI?: Yes Time Seen by Provider: 02/09/22 21:30 Source: patient, family, RN notes reviewed, old records reviewed Mode of arrival: Stretcher Limitations: Physical Limitation - History of Present Illness Initial comments: The patient was evaluated in the emergency department for symptoms described in the history of present illness. He/she was evaluated in the context of the global COVID-19 pandemic, which necessitated consideration that the patient might be at risk for infection with the virus that causes COVID-19. Institutional protocols and algorithms that pertain to the evaluation of patients at risk for COVID-19 are in a state of rapid change based on information released by regulatory bodies including the CDC and federal and state organizations. These policies and algorithms were followed during the patient's care in the emergency department. Please note that these policies, procedures and recommendations changed on a rapid basis. This is a 61-year-old female who presents to department today with multiple complaints, including central and left-sided chest wall pain which is present since this morning, which does not radiate to the back, arms or neck, and is not associated with diaphoresis or new/different exertional shortness of breath. She also endorses a simultaneous epigastric and left upper quadrant abdominal pain, and sensation of bilateral plantar foot numbness, right greater than left, as well as tingling, and bilateral hand and forearm tingling. There is no weakness. The patient's past medical history is complicated, and remarkable for hypertension, arthritis, morbid obesity, history of hernia repair, recent history of right hip replacement, who was admitted to the hospital recently for chest pain. She had a nuclear stress test which was negative for ischemia, and a CTA chest which was negative for acute findings. She did have a right lower extremity DVT, which was found to be an acute thrombus within the right posterior tibial vein, and peroneal veins, extending into the popliteal vein. She was started on Eliquis and discharged. She is also subsequently discharged with Levaquin, for an Enterococcus facialis UTI. She reports compliance with medications except for eliquis, which she has not had in 1 week. The patient reports that she had eliquis while here in the hospital, but upon discharge, pharmacy could not fill it, because apparently her insurance company would only coverage for once daily dosing, instead of twice daily. There is no exertional shortness of breath which is new or different. She had some nausea earlier on today and yesterday, which is now resolved. She denies dysuria. She denies fever. She denies loss of taste and smell. -: hour(s), days(s) Location: chest, abdomen, left, right, upper extremity, lower extremity Quality: other (Chest wall pain is aching and sharp and constant) Consistency: other (Chest wall pain increases with palpation and range of motion. Decreases with rest and position) - Related Data Home Medications Medication Instructions Recorded Confirmed Last Taken Amlodipine Besylate [Norvasc] 5 mg PO DAILY 12/22/21 12/22/21 Unknown Metoprolol Xl [Metoprolol 50 mg PO QDAY 12/22/21 12/22/21 Unknown SUCCINATE ER TAB] cycloSPORINE [Restasis] 1 drop OU BID 12/22/21 12/22/21 Unknown hydroCHLOROthiazide [HCTZ] 25 mg PO QDAY 12/22/21 12/22/21 Unknown Cyanocobalamin (Vitamin B-12) 1,000 mcg PO QDAY 12/31/21 12/31/21 1 Week Ago [Vitamin B-12] ~12/24/21 Meclizine [Antivert] 25 mg PO QDAY PRN 12/31/21 12/31/21 Unknown Previous Rx's Medication Instructions Recorded Last Taken Type Apixaban [Eliquis] 10 mg PO Q12HR #70 tablet 02/06/22 Unknown Rx levoFLOXacin [Levaquin TAB] 750 mg PO Q24HR #6 tablet 02/06/22 Unknown Rx Allergies Allergy/AdvReac Type Severity Reaction Status Date / Time lisinopril AdvReac Angioedema Verified 01/19/19 12:35 ED Review of Systems ROS: Stated complaint: BLOOD CLOT IN LEGS/CHEST PAIN Other details as noted in HPI Constitutional: malaise. denies: fever Eyes: denies: eye discharge Respiratory: shortness of breath (Chronic shortness of). denies: cough Cardiovascular: chest pain (Central and left-sided chest wall) Gastrointestinal: abdominal pain, nausea. denies: vomiting Genitourinary: denies: dysuria Musculoskeletal: myalgia Neurological: weakness (Generalized weakness), other (Nonspecific tingling). denies: headache ED Past Medical Hx - Past Medical History Previous Medical History?: Yes Hx Hypertension: Yes Hx Heart Attack/AMI: No Hx Congestive Heart Failure: No Hx Diabetes: No Hx GERD: Yes Hx Liver Disease: No Hx Renal Disease: No Hx Arthritis: Yes Hx Kidney Stones: No Hx Asthma: No Hx COPD: No Hx Tuberculosis: No Hx HIV: No Additional medical history: Obesity, gout - Surgical History Past Surgical History?: Yes Additional Surgical History: hernia repair x2, R hip replacement - Social History Smoking Status: Never Smoker Substance Use Type: None - Medications Home Medications: Home Medications Medication Instructions Recorded Confirmed Last Taken Type Amlodipine Besylate [Norvasc] 5 mg PO DAILY 12/22/21 12/22/21 Unknown History Metoprolol Xl [Metoprolol 50 mg PO QDAY 12/22/21 12/22/21 Unknown History SUCCINATE ER TAB] cycloSPORINE [Restasis] 1 drop OU BID 12/22/21 12/22/21 Unknown History hydroCHLOROthiazide [HCTZ] 25 mg PO QDAY 12/22/21 12/22/21 Unknown History Cyanocobalamin (Vitamin B-12) 1,000 mcg PO QDAY 12/31/21 12/31/21 1 Week Ago History [Vitamin B-12] ~12/24/21 Meclizine [Antivert] 25 mg PO QDAY PRN 12/31/21 12/31/21 Unknown History Apixaban [Eliquis] 10 mg PO Q12HR #70 tablet 02/06/22 Unknown Rx levoFLOXacin [Levaquin TAB] 750 mg PO Q24HR #6 tablet 02/06/22 Unknown Rx ED Physical Exam - General Limitations: No Limitations General appearance: alert, in no apparent distress, obese - Head Head exam: Present: atraumatic, normocephalic - Eye Eye exam: Present: normal appearance, EOMI. Absent: nystagmus - ENT ENT exam: Present: normal exam, normal orophraynx, mucous membranes moist, normal external ear exam - Neck Neck exam: Present: normal inspection, full ROM. Absent: tenderness, meningismus - Respiratory Respiratory exam: Present: normal lung sounds bilaterally, chest wall tenderness. Absent: respiratory distress, wheezes, rales, rhonchi, stridor - Cardiovascular Cardiovascular Exam: Present: regular rate, normal rhythm, normal heart sounds. Absent: bradycardia, tachycardia, irregular rhythm, systolic murmur, diastolic murmur, rubs, gallop - GI/Abdominal GI/Abdominal exam: Present: soft, tenderness. Absent: distended, guarding, rebound, rigid, pulsatile mass - Extremities Exam Extremities exam: Present: normal inspection, other (2+ pulses noted in the bilateral upper and lower extremities. There is no palpable cord. negative Homans sign. Muscular compartments are soft. The pelvis is stable.). Absent: calf tenderness - Back Exam Back exam: Present: normal inspection. Absent: tenderness, CVA tenderness (R), CVA tenderness (L), paraspinal tenderness, vertebral tenderness - Neurological Exam Neurological exam: Present: alert, oriented X3, reflexes normal, other (No facial droop. Tongue midline. Extraocular movements intact bilaterally. Facial sensation intact to light touch in V1, V2, V3 distribution bilaterally. 5 and a 5 strength in 4 extremities. Sensation intact to light touch in 4 extremities.). Absent: motor sensory deficit - Psychiatric Psychiatric exam: Present: normal affect, normal mood - Skin Skin exam: Present: warm, dry, intact, normal color. Absent: rash ED Course Vital Signs 02/09/22 02/09/22 02/10/22 20:05 22:30 00:11 Temperature 98.5 F Pulse Rate 100 H Respiratory 20 Rate Blood Pressure 123/81 O2 Sat by Pulse 96 98 Oximetry O2 Sat by Pulse 99 Oximetry [ Digit-Finger] - Reevaluation(s) Reevaluation #1: 02/09/22 22:04 Differential diagnosis, include but not limited to: Costochondritis, GERD, gastritis, hiatal hernia, pneumonia, DVT, coronary artery disease, renal colic, AAA, retroperitoneal hematoma, pyelonephritis, perinephric abscess, peripheral neuropathy Assessment and plan: 61-year-old female with multiple complaints, including nonspecific tingling on the plantar aspect of her right foot predominantly, also involving her fingertips, also with nonspecific chest wall pain, as well as left upper quadrant abdominal pain. Patient recently had a negative cardiac nuclear stress test. She is not compliant with eliquis secondary to issues with insurance company. For these reasons, we will treat her pain, obtain CT angiogram of the chest, to rule out for PE, and CT angiogram of the abdomen pelvis, to assess for complications from her recent medical diagnoses. We will also treat her symptoms. She has a GCS of 15, and an NIH score of 0. S uspect peripheral neuropathy at this time. Strength and sensation intact on my exam, with appropriate reflexes. However, we will obtain noncontrast CT scan of the brain, given that she was on anticoagulation while here in the hospital last week. Patient advised that we will not be able to address or correct issues with insurance company not approving eliquis. We can place a case management con sult, and also give patient Eliquis starter pack, however, she will need to follow-up with her primary care doctor to further address. I discussed this with the patient. She articulates understanding 02/10/22 00:30 The patient is seen and reexamined. She is in no acute distress at this time. She is resting comfortably on her stretcher, and endorses improvement in symptoms. CT scan brain, chest abdomen pelvis negative for acute or emergent findings. Nonspecific uterine findings noted. Patient extensively and explicitly counseled on nature of CT scan findings, and need to specifically fol low-up with outpatient gynecology, to evaluate for malignancy, tumor, cancer. She articulates understanding. A case management consult was placed. The patient is given a good Rx affordable prescription card. She is observed in this department for hours without clinical decompensation. She is suitable to be discharged at this time with outpatient follow-up - Pulse Oximetry Interpretation Digit-Finger Initial Pulse Oximetry Readin O2 Sat by Pulse Oximetry: 99 Actions Taken: none ED Medical Decision Making - Lab Data Result diagrams: 02/09/22 21:52 02/09/22 21:52 Vital Signs 02/09/22 02/09/22 20:05 22:06 Temperature 98.5 F Pulse Rate 100 H Respiratory 20 Rate Blood Pressure 123/81 O2 Sat by Pulse 96 Oximetry O2 Sat by Pulse 99 Oximetry [ Digit-Finger] - EKG Data -: EKG Interpreted by [place] EKG shows normal: sinus rhythm Rate: normal - EKG Data 02/09/22 22:29 The EKG is interpreted at 22: 09 It appears to be unchanged from prior EKG from February 02, with the exception of Q wave in V2. Sinus rhythm, 82 bpm. Borderline leftward axis deviation versus LVH, motion artifact, persistent first-degree AV block. Motion artifact. This is not a STEMI - Radiology Data Radiology results: pending, report reviewed, image reviewed CT ABDOMEN AND PELVIS WITH CONTRAST INDICATION / CLINICAL INFORMATION: left sided abd pain, covid 19, hx of dvt. TECHNIQUE: Axial CT images were obtained through the abdomen and pelvis after 100 cc Omnipaque [address] scans at this location are performed using CT dose reduction for [facility] by means of automated exposure control. COMPARISON: CT of abdomen and pelvis 01/31/2022 FINDINGS: LOWER CHEST: Groundglass opacities right lower lobe. Mildly dilated lower esophagus containing fluid. Nonspecific finding. LIVER: No focal lesion. No acute findings. GALLBLADDER / BILE DUCTS: No significant abnormality. Biliary ducts grossly unremarkable. SPLEEN: No significant abnormality. PANCREAS: No significant abnormality. ADRENALS: No significant abnormality. KIDNEYS/URETERS: No stones or hydronephrosis. No solid renal lesion. STOMACH / DUODENUM / SMALL BOWEL: Severe motion artifact present within the midabdomen. No gross evidence of acute pathology. Mesh implanted along the anterior peritoneal surface. COLON: No gross abnormality. Significant motion artifact. APPENDIX: Not identified. PERITONEUM: No free air or free fluid are present within the abdomen or pelvis. LYMPH NODES: No significant adenopathy. AORTA / ARTERIES: No significant a bnormality. IVC / VEINS: No significant abnormality. URINARY BLADDER: No significant abnormality. REPRODUCTIVE ORGANS: Multiple uterine fibroids. The endometrial cavity appears enlarged. SKELETAL SYSTEM: Prior right hip arthroplasty. Moderately severe left femoral acetabular joint degenerative guillory es. Multilevel facet arthropathy. ADDITIONAL ABDOMINAL/PELVIC FINDINGS: None. IMPRESSION: 1. No imaging findings to suggest etiology of the provided symptoms. 2. Enlarged appearance of the endometrial cavity. Nonemergent outpatient ultrasound recommended for further characterization. Differential considerations include endometrial hyperplasia as well as endometrial carcinoma. Signer Name: Ross Zee II, MD Signed: 02/09/2022 10:39 PM Workstation Name: [id number] CT HEAD WITHOUT CONTRAST INDICATION / CLINICAL INFORMATION: recent covid, dvt, eliquis, hand and foot tingling. TECHNIQUE: CT head was performed without administration of intravenous contrast. All CT scans at this location are performed using CT dose reduction for ALARA by means of automated exposure control. COMPARISON: CT head 01/31/2022 FINDINGS: CEREBRAL HEMISPHERES: Generalized atrophy and bilateral regions of periventricular white matter hypoattenuation compatible with microvascular ischemia are demonstrated. No midline shift. Basal cisterns patent. HEMORRHAGE: None. CEREBELLUM / BRAINSTEM: No significant abnormality. ORBITS: No significant abnormality. SOFT TISSUES: No significant abnormality. SKULL: No significant abnormality. PARANASAL SINUSES / MASTOID AIR CELLS: Normal as visualized. ADDITIONAL FINDINGS: None. IMPRESSION: 1. No acute intracranial abnormality. Signer Name: Ross knutson II, MD Signed: 02/09/2022 10:31 PM Workstation Name: [id number] TECHNIQUE: Axial CT images were obtained through the chest after injection of 100 cc Omnipaque 350 IV contrast. 3 plane MIP and/or 3D reconstructions were produced. All CT scans at this location are performed using CT dose reduction for ALARA by means of automated exposure control. COMPARISON: CTA chest 01/31/2022 FINDINGS: VASCULAR FINDINGS: PULMONARY ARTERY: Pulmonary artery is normal in size. No filling defects are present compatible with pulmonary artery embolus.. THORACIC AORTA: No significant abnormality. CORONARY ARTERY CALCIFICATION: Absent -- None. NONVASCULAR FINDINGS: LOWER NECK: Soft tissues and musculature of the lower neck demonstrate no significant abnormality. The thyroid demonstrates no significant abnormality. HEART: No significant abnormality. MEDIASTINUM / SUSHMA: No significant abnormality. ESOPHAGUS: No significant abnormality. LYMPH NODES: No adenopathy within the axilla, mediastinum, or sushma. LUNGS: Dependent atelectatic changes within the lower lobes. Lungs otherwise clear. PLEURA: No pleural effusion. No pneumothorax. THORACIC SOFT TISSUES: No significant abnormality of the chest wall or upper thoracic musculature. BONES: No significant skeletal abnormalities. ADDITIONAL CHEST FINDINGS: None. UPPER ABDOMEN: No significant abnormality. IMPRESSION: 1. No CT evidence for pulmonary embolism. 2. No acute findings. Signer Name: Ross Zee II, MD Signed: 02/09/2022 10:48 PM Workstation Name: [id number] Critical care attestation.: If time is entered above; I have spent that time in minutes in the direct care of this critically ill patient, excluding procedure time. ED Disposition Clinical Impression: Chest wall pain, Acute abdominal pain, History of DVT (deep vein thrombosis), Tingling, History of COVID-19, Hypokalemia, Abnormal computed tomography of abdomen and pelvis Disposition: 01 HOME / SELF CARE / HOMELESS Is pt being admited?: No Does the pt Need Aspirin: No Condition: Good Additional Instructions: Please continue current outpatient medications. Do not take metformin medication for the next 2 days, if patient takes this medication. Patient will receive a good Rx affordable prescription card, to facilitate acquisition of eliquis prescription. However, strongly recommend that patient contact her primary care doctor first thing in the morning, and insurance company, and coordination with her primary care doctor, to coordinate appropriate dispensati on of eliquis prescription. Patient is encouraged to consume foods that are high in potassium, magnesium, calcium, such as banana, avocado, and potato. CT scan chest abdomen pelvis showed no acute or emergent findings this evening. Nonspecific findings are noted, which should be followed up by either your outpatient primary care doctor or terminologist. CT scan abdomen pelvis specifically demonstrated or suggested nonspecific uterine findings, which will require close outpatient follow-up with a terminologist, to evaluate for potential cancer, tumor, malignancy. Please have your primary care doctor or terminologist contact medical records department, and obtain copies of laboratory studies and imaging studies, to follow-up on nonemergent incidental abnormal findings. May take [id number] Tylenol as needed for physical pain. Do not take metformin medication for the next 2 days if patient takes this medication. Please continue current outpatient medications otherwise. A case management consult has been ordered to assist the patient with her current situation with her insurance company and eliquis. They should be contacting the patient at the listed phone number. Please return to the emergency room right away with new pain, worsened pain, migration of pain, projectile vomiting, change in mental status, confusion, inability tolerate liquid feeds, new, worsened or different symptoms not present on the initial emergency room evaluation Referrals: TIMUR BENTON MD [Primary Care Provider] - 3-5 Days [facility] [Provider Group] - 3-5 Days
[2022-02-09 22:05] LABS: Hematocrit 40.2 % (30.3-42.9); Hemoglobin 13.1 gm/dl (10.1-14.3); Mean Corpuscular HGB Conc 33 % (30-34); Mean Corpuscular Volume 86 fl (79-97); Platelet Count 233 K/mm3 (140-440); Red Blood Count 4.69 M/mm3 (3.65-5.03); Red Cell Distribution Width 16.1 % (13.2-15.2)
[2022-02-09 22:14] LABS: Partial Thromboplastin Time 29.9 Sec. (24.2-36.6)
[2022-02-09 23:00] LABS: Eosinophils % (Manual) 0 % (0.0-4.3); Total Cells Counted 100
[2022-02-09 23:07] LABS: Smudge Cells 1+
[2022-02-09 23:11] LABS: Toxic Vacuolation Rare
[2022-02-09 23:27] LABS: Platelet Estimate Consistent w Auto
[2022-02-09 23:33] LABS: Alanine Aminotransferase 34 units/L (7-56); Albumin 3.9 g/dL (3.9-5); BUN/Creatinine Ratio 16; Blood Urea Nitrogen 18 mg/dL (7-17); Hemolysis Index 5
[2022-02-09] MEDS ORDERED: POTASSIUM CHLORIDE ER 20 MEQ TAB PO ONE (23:34)
[2022-02-09] MEDS ORDERED: LACTATED RINGERS 500 ML IV ONE (23:35)
--- NOTE | 2022-02-09 23:35 | Cat Scan Report ---
CT HEAD WITHOUT CONTRAST INDICATION / CLINICAL INFORMATION: recent covid, dvt, eliquis, hand and foot tingling. TECHNIQUE: CT head was performed without administration of intravenous contrast. All CT scans at this location are performed using CT dose reduction for ALARA by means of automated exposure control. COMPARISON: CT head 01/31/2022 FINDINGS: CEREBRAL HEMISPHERES: Generalized atrophy and bilateral regions of periventricular white matter hypoa ttenuation compatible with microvascular ischemia are demonstrated. No midline shift. Basal cisterns patent. HEMORRHAGE: None. CEREBELLUM / BRAINSTEM: No significant abnormality. ORBITS: No significant abnormality. SOFT TISSUES: No significant abnormality. SKULL: No significant abnormality. PARANASAL SINUSES / MASTOID AIR CELLS: Normal as visualized. ADDITIONAL FINDINGS: None. IMPRESSION: 1. No acute intracranial abnormality. Signer Name: Ross Zee II, MD Signed: 02/09/2022 11:31 PM Workstation Name: [id number]
--- NOTE | 2022-02-09 23:43 | Cat Scan Report ---
CT ABDOMEN AND PELVIS WITH CONTRAST INDICATION / CLINICAL INFORMATION: left sided abd pain, covid 19, hx of dvt. TECHNIQUE: Axial CT images were obtained through the abdomen and pelvis after 100 cc Omnipaque [address] scans at this location are performed using CT dose reduction for ALARA by means of automated exposure control. COMPARISON: CT of abdomen and pelvis 01/31/2022 FINDINGS: LOWER CHEST: Groundglass opacities right lower lobe. Mildly dilated lower esophagus containing fluid. Nonspecific finding. LIVER: No focal lesion. No acute findings. GALLBLADDER / BILE DUCTS: No significant abnormality. Biliary ducts grossly unremarkable. SPLEEN: No significant abnormality. PANCREAS: No significant abnormality. ADRENALS: No significant abnormality. KIDNEYS/URETERS: No stones or hydronephrosis. No solid renal lesion. STOMACH / DUODENUM / SMALL BOWEL: Severe motion artifact present within the midabdomen. No gross evid ence of acute pathology. Mesh implanted along the anterior peritoneal surface. COLON: No gross abnormality. Significant motion artifact. APPENDIX: Not identified. PERITONEUM: No free air or free fluid are present within the abdomen or pelvis. LYMPH NODES: No significant adenopathy. AORTA / ARTERIES: No significant abnormality. IVC / VEINS: No significant abnormality. URINARY BLADDER: No significant abnormality. REPRODUCTIVE ORGANS: Multiple uterine fibroids. The endometrial cavity appears enlarged. SKELETAL SYSTEM: Prior right hip arthroplasty. Moderately severe left femoral acetabular joint degene rative changes. Multilevel facet arthropathy. ADDITIONAL ABDOMINAL/PELVIC FINDINGS: None. IMPRESSION: 1. No imaging findings to suggest etiology of the provided symptoms. 2. Enlarged appearance of the endometrial cavity. Nonemergent outpatient ultrasound recommended for f urther characterization. Differential considerations include endometrial hyperplasia as well as endom etrial carcinoma. Signer Name: Ross Zee II, MD Signed: 02/09/2022 11:39 PM Workstation Name: [id number]
--- NOTE | 2022-02-09 23:53 | Cat Scan Report ---
CTA CHEST WITH CONTRAST INDICATION / CLINICAL INFORMATION: dvt, covid, + left sided chest pain. TECHNIQUE: Axial CT images were obtained through the chest after injection of 100 cc Omnipaque 350 IV contrast. 3 plane MIP and/or 3D reconstructions were produced. All CT scans at this location are per formed using CT dose reduction for ALARA by means of automated exposure control. COMPARISON: CTA chest 01/31/2022 FINDINGS: VASCULAR FINDINGS: PULMONARY ARTERY: Pulmonary artery is normal in size. No filling defects are present compatible with pulmonary artery embolus.. THORACIC AORTA: No significant abnormality. CORONARY ARTERY CALCIFICATION: Absent -- None. NONVASCULAR FINDINGS: LOWER NECK: Soft tissues and musculature of the lower neck demonstrate no significant abnormality. Th e thyroid demonstrates no significant abnormality. HEART: No significant abnormality. MEDIASTINUM / SUSHMA: No significant abnormality. ESOPHAGUS: No significant abnormality. LYMPH NODES: No adenopathy within the axilla, mediastinum, or sushma. LUNGS: Dependent atelectatic changes within the lower lobes. Lungs otherwise clear. PLEURA: No pleural effusion. No pneumothorax. THORACIC SOFT TISSUES: No significant abnormality of the chest wall or upper thoracic musculature. BONES: No significant skeletal abnormalities. ADDITIONAL CHEST FINDINGS: None. UPPER ABDOMEN: No significant abnormality. IMPRESSION: 1. No CT evidence for pulmonary embolism. 2. No acute findings. Signer Name: Ross Zee II, MD Signed: 02/09/2022 11:48 PM Workstation Name: [id number]
[2022-02-10] MEDS ORDERED: APIXABAN 5 MG TAB PO STA (00:26)
--- NOTE | 2022-02-10 13:50 | Electrocardiograph Report ---
[facility] Test Date: 2022-02-09 Test Time: 22:09:30 Pat Name: AJIT CHOWDHURY Department: Room: Gender: F Wall Attendant: MED : 1960 Requested By: TOM WINN Order Number: [id number] Reading MD: Shun Marinelli Measurements Intervals [place] Rate: 82 P: 0 MN: 211 QRS: 4 QRSD: 90 T: 24 QT: 380 QTc: 443 Interpretive Statements Sinus rhythm Consider left ventricular hypertrophy Compared to ECG 02/01/2022 06:45:57 No significant change Electronically Signed On 02-10-2022 13:49:54 EDT by Shun Marinelli
== END 2022-02-10 03:30 | disposition home or self-care (01) ==
LOC: ED 19:23
DX: R07.89 Other chest pain (principal); R10.13 Epigastric pain; R10.12 Left upper quadrant pain; I82.409 Acute embolism and thrombosis of unspecified deep veins of unspecified lower extremity; E87.6 Hypokalemia; R20.2 Paresthesia of skin; R93.5 Abnormal findings on diagnostic imaging of other abdominal regions, including retroperitoneum; R93.41 Abnormal radiologic findings on diagnostic imaging of renal pelvis, ureter, or bladder; Z86.16 Personal history of COVID-19; I10 Essential (primary) hypertension; K21.9 Gastro-esophageal reflux disease without esophagitis; M19.90 Unspecified osteoarthritis, unspecified site; M10.9 Gout, unspecified; E66.9 Obesity, unspecified; Z98.890 Other specified postprocedural states; Z88.8 Allergy status to other drugs, medicaments and biological substances
CPT/HCPCS: 36415; 70450; 71275; 74177; 80053; 82550; 83690; 83735; 84484; 85007; 85025; 85379; 85610; 85730; 93005; 96374; 96375; 99284; C9113; J2270; J2405; Q9967

== ENCOUNTER 2022-03-04 06:03 | Emergency (ER) | payer MEDICAID ==
--- NOTE | 2022-03-04 07:42 | Emergency Department Report ---
ED Back Pain/Injury HPI - General Chief Complaint: Extremity Injury, Lower Stated Complaint: NUMBNESS IN BOTH LEGS AND BACK Time Seen by Provider: 03/04/22 07:19 Source: EMS Limitations: No Limitations - History of Present Illness Initial Comments: Patient is a 61-year-old female presenting to ED with complaint of progressively worsening pain in her lower back over the past several days with associated numbness and weakness in both of her legs beginning yesterday. She denies any recent injury. States several weeks ago she had similar symptoms and was incidentally diagnosed with a DVT in her right leg for which she is currently on Eliquis. - Related Data Home Medications Medication Instructions Recorded Confirmed Last Taken Amlodipine Besylate [Norvasc] 5 mg PO DAILY 12/22/21 12/22/21 Unknown Metoprolol Xl [Metoprolol 50 mg PO QDAY 12/22/21 12/22/21 Unknown SUCCINATE ER TAB] cycloSPORINE [Restasis] 1 drop OU BID 12/22/21 12/22/21 Unknown hydroCHLOROthiazide [HCTZ] 25 mg PO QDAY 12/22/21 12/22/21 Unknown Cyanocobalamin (Vitamin B-12) 1,000 mcg PO QDAY 12/31/21 12/31/21 1 Week Ago [Vitamin B-12] ~12/24/21 Meclizine [Antivert] 25 mg PO QDAY PRN 12/31/21 12/31/21 Unknown Previous Rx's Medication Instructions Recorded Last Taken Type Apixaban [Eliquis] 10 mg PO Q12HR #70 tablet 02/06/22 Unknown Rx levoFLOXacin [Levaquin TAB] 750 mg PO Q24HR #6 tablet 02/06/22 Unknown Rx Potassium Chloride [K-Dur] 20 meq PO BID #30 tab 02/10/22 Unknown Rx traMADoL [Ultram 50 MG tab] 50 mg PO Q6HR PRN #12 tablet 03/04/22 Unknown Rx Allergies Allergy/AdvReac Type Severity Reaction Status Date / Time lisinopril AdvReac Angioedema Verified 01/19/19 12:35 ED Review of Systems ROS: Stated complaint: NUMBNESS IN BOTH LEGS AND BACK Other details as noted in HPI ED Past Medical Hx - Past Medical History Previous Medical History?: Yes Hx Hypertension: Yes Hx Heart Attack/AMI: No Hx Congestive Heart Failure: No Hx Diabetes: No Hx GERD: Yes Hx Liver Disease: No Hx Renal Disease: No Hx Arthritis: Yes Hx Kidney Stones: No Hx Asthma: No Hx COPD: No Hx Tuberculosis: No Hx HIV: No Additional medical history: Obesity, gout - Surgical History Past Surgical History?: Yes Additional Surgical History: hernia repair x2, R hip replacement - Social History Smoking Status: Never Smoker Substance Use Type: None - Medications Home Medications: Home Medications Medication Instructions Recorded Confirmed Last Taken Type Amlodipine Besylate [Norvasc] 5 mg PO DAILY 12/22/21 12/22/21 Unknown History Metoprolol Xl [Metoprolol 50 mg PO QDAY 12/22/21 12/22/21 Unknown History SUCCINATE ER TAB] cycloSPORINE [Restasis] 1 drop OU BID 12/22/21 12/22/21 Unknown History hydroCHLOROthiazide [HCTZ] 25 mg PO QDAY 12/22/21 12/22/21 Unknown History Cyanocobalamin (Vitamin B-12) 1,000 mcg PO QDAY 12/31/21 12/31/21 1 Week Ago History [Vitamin B-12] ~12/24/21 Meclizine [Antivert] 25 mg PO QDAY PRN 12/31/21 12/31/21 Unknown History Apixaban [Eliquis] 10 mg PO Q12HR #70 tablet 02/06/22 Unknown Rx levoFLOXacin [Levaquin TAB] 750 mg PO Q24HR #6 tablet 02/06/22 Unknown Rx Potassium Chloride [K-Dur] 20 meq PO BID #30 tab 02/10/22 Unknown Rx traMADoL [Ultram 50 MG tab] 50 mg PO Q6HR PRN #12 tablet 03/04/22 Unknown Rx ED Physical Exam - General Limitations: No Limitations ED Course Vital Signs 03/04/22 06:17 Temperature 98.8 F Pulse Rate 82 Respiratory 18 Rate Blood Pressure 130/88 O2 Sat by Pulse 99 Oximetry ED Medical Decision Making - Lab Data Result diagrams: 03/04/22 07:38 03/04/22 07:38 - Medical Decision Making MRI reveals multilevel degenerative changes and bulging disks in the lumbar spine. I discussed results with patient. States she is currently receiving physical therapy. She was given [place] for pain. Will discharge home with Rx for tramadol. Follow-up with PT at earliest convenience. Critical care attestation.: If time is entered above; I have spent that time in minutes in the direct care of this critically ill patient, excluding procedure time. ED Disposition Clinical Impression: Degenerative disc disease, Bulging lumbar disc Disposition: 01 HOME / SELF CARE / HOMELESS Is pt being admited?: No Condition: Stable Instructions: Degenerative Disk Disease Additional Instructions: Please follow-up with your regular doctor and physical therapist at your earliest convenience. Please return if your symptoms worsen. Time of Disposition: 09:47
[2022-03-04 08:05] LABS: Basophils % (Auto) 0.4 % (0.0-1.8); Eosinophils # (Auto) 0.2 K/mm3 (0.0-0.4); Eosinophils % (Auto) 3.7 % (0.0-4.3); Hematocrit 35.1 % (30.3-42.9); Lymphocytes # (Auto) 1.3 K/mm3 (1.2-5.4); Lymphocytes % (Auto) 28.6 % (13.4-35.0); Mean Corpuscular HGB Conc 32 % (30-34); Mean Corpuscular Volume 87 fl (79-97); Monocytes # (Auto) 0.6 K/mm3 (0.0-0.8); Monocytes % (Auto) 13.1 % (0.0-7.3); Platelet Count 262 K/mm3 (140-440); Red Blood Count 4.03 M/mm3 (3.65-5.03); Red Cell Distribution Width 17.9 % (13.2-15.2)
[2022-03-04 08:28] LABS: Alanine Aminotransferase 22 units/L (7-56); Albumin 3.7 g/dL (3.9-5); Blood Urea Nitrogen 12 mg/dL (7-17); Calcium 9.3 mg/dL (8.4-10.2); Hemolysis Index 5
[2022-03-04 08:40] LABS: BUN/Creatinine Ratio 17
--- NOTE | 2022-03-04 09:20 | Magnetic Resonance Report ---
MR lumbar spine wo con INDICATION / CLINICAL INFORMATION: 61 years Female; Lower back pain, bilateral leg weakness/numbness Patient motion, best possible exam, repeated scans.. TECHNIQUE: Multisequence, multiplanar images of the lumbar spine were obtained. COMPARISON: None available. FINDINGS: ALIGNMENT: There is slight anterolisthesis at L4-L5 with mild disc desiccation at. There is no signif icant lumbar scoliosis. VERTEBRAE:There are multilevel mild endplate changes anteriorly involving lumbar spine without signif icant edema. VISUALIZED SPINAL CORD: The motion degrades image quality. However, the distal spinal cord demonstrat e appropriate morphology and terminates at L1. ECKIA-LE-TJMPA ANALYSIS: L1-2: No significant abnormality. L2-3: There is a minimal a disc bulge without significant spinal stenosis. L3-4: There is mild facet joint arthropathy with small effusions. Is also slight disc bulge with mild foraminal narrowing bilaterally. There is no significant central spinal stenosis. L4-5: There is slight disc bulge which minimally flattens the ventral thecal sac. This mild facet anival nt hypertrophy with mild foraminal narrowing bilaterally. L5-S1: There is also slight disc bulge with mild facet joint changes at L5-S1 at. There is no signifi cant central spinal stenosis. There is mild foraminal narrowing bilaterally. PARASPINAL SOFT TISSUES: No significant abnormality. ADDITIONAL FINDINGS: No epidural collections are identified. IMPRESSION: 1. There are multilevel degenerative changes and disc bulges involving lumbar spine as detailed above . Signer Name: Santy Bentley MD Signed: 03/04/2022 9:15 AM Workstation Name: [id number]
[2022-03-04] MEDS ORDERED: HYDROcodone/ACETAMINOPHEN 5-325 MG TAB PO ONE (09:45)
[2022-03-04 10:13] VITALS: BP 143/90
== END 2022-03-04 11:07 | disposition home or self-care (01) ==
LOC: ED 06:03
DX: M51.36 Other intervertebral disc degeneration, lumbar region (principal); M51.26 Other intervertebral disc displacement, lumbar region; I10 Essential (primary) hypertension
CPT/HCPCS: 36415; 72148; 80053; 85025; 99284

== ENCOUNTER 2022-03-15 23:51 | Emergency (ER) | payer MEDICAID ==
[2022-03-16] MEDS ORDERED: SODIUM CHLORIDE 0.9% 1000 ML 1,000 ML IV ONE (09:09)
[2022-03-16] MEDS ORDERED: ONDANSETRON 4 MG/2 ML INJ IV ONE (09:09)
[2022-03-16] MEDS ORDERED: MECLIZINE 25 MG TAB PO ONE (09:09)
--- NOTE | 2022-03-16 09:48 | XRay Report ---
CHEST 1 VIEW 03/16/2022 9:04 AM INDICATION / CLINICAL INFORMATION: chest pain. COMPARISON: CTA chest 02/09/2022. FINDINGS: SUPPORT DEVICES: None. HEART / MEDIASTINUM: No significant abnormality. LUNGS / PLEURA: No significant pulmonary or pleural abnormality. No pneumothorax. ADDITIONAL FINDINGS: No significant additional findings. IMPRESSION: No acute abnormality. Signer Name: Main Frankel MD Signed: 03/16/2022 9:44 AM Workstation Name: [id number]
[2022-03-16 09:55] LABS: Basophils % (Auto) 0.3 % (0.0-1.8); Eosinophils # (Auto) 0.1 K/mm3 (0.0-0.4); Eosinophils % (Auto) 1.4 % (0.0-4.3); Hematocrit 41.3 % (30.3-42.9); Hemoglobin 13.5 gm/dl (10.1-14.3); Lymphocytes # (Auto) 1.8 K/mm3 (1.2-5.4); Lymphocytes % (Auto) 35.5 % (13.4-35.0); Mean Corpuscular HGB Conc 33 % (30-34); Mean Corpuscular Volume 87 fl (79-97); Monocytes # (Auto) 0.6 K/mm3 (0.0-0.8); Monocytes % (Auto) 11.2 % (0.0-7.3); Platelet Count 313 K/mm3 (140-440); Red Blood Count 4.77 M/mm3 (3.65-5.03); Red Cell Distribution Width 18.6 % (13.2-15.2)
[2022-03-16 10:15] LABS: Alanine Aminotransferase 10 units/L (7-56); Albumin 4.5 g/dL (3.9-5); Blood Urea Nitrogen 12 mg/dL (7-17); Calcium 10.2 mg/dL (8.4-10.2); Hemolysis Index 63
[2022-03-16 10:17] LABS: BUN/Creatinine Ratio 20
--- NOTE | 2022-03-16 10:26 | Cat Scan Report ---
CT BRAIN: 03/16/2022 INDICATION / CLINICAL INFORMATION: dizzine. COMPARISON: CT brain 02/09/2022 FINDINGS: BRAIN/INTRACRANIAL STRUCTURES: Unenhanced CT images of the brain demonstrate no evidence of acute abn ormality. Ventricles and sulci are normal in size and shape. There is no evidence of ischemic injury, demyelination, hemorrhage, or mass. There are no abnormal ex tra-axial fluid collections. EXTRACRANIAL STRUCTURES: Unremarkable. IMPRESSION: No acute abnormality. No change when compared to 02/09/2022. All CT scans at this location are performed using dose reduction to ALARA by means of automated expos ure control. 03/16/2022 Signer Name: Jose Eduardo Jimenes MD Signed: 03/16/2022 10:22 AM Workstation Name: [id number]
--- NOTE | 2022-03-16 12:28 | Emergency Department Report ---
ED General Adult HPI - General Chief complaint: Dizziness Stated complaint: VERTIGO PUI?: No Time Seen by Provider: 03/16/22 09:03 Source: EMS Mode of arrival: Stretcher Limitations: No Limitations - History of Present Illness Initial comments: vertigo started approx 1800, c/o dizziness and nausea -: Gradual, hour(s) Location: head Severity scale (0 -10): 0 Consistency: constant Worsens with: movement Associated Symptoms: nausea/vomiting - Related Data Home Medications Medication Instructions Recorded Confirmed Last Taken Amlodipine Besylate [Norvasc] 5 mg PO DAILY 12/22/21 12/22/21 Unknown Metoprolol Xl [Metoprolol 50 mg PO QDAY 12/22/21 12/22/21 Unknown SUCCINATE ER TAB] cycloSPORINE [Restasis] 1 drop OU BID 12/22/21 12/22/21 Unknown hydroCHLOROthiazide [HCTZ] 25 mg PO QDAY 12/22/21 12/22/21 Unknown Cyanocobalamin (Vitamin B-12) 1,000 mcg PO QDAY 12/31/21 12/31/21 1 Week Ago [Vitamin B-12] ~12/24/21 Meclizine [Antivert] 25 mg PO QDAY PRN 12/31/21 12/31/21 Unknown Previous Rx's Medication Instructions Recorded Last Taken Type Apixaban [Eliquis] 10 mg PO Q12HR #70 tablet 02/06/22 Unknown Rx levoFLOXacin [Levaquin TAB] 750 mg PO Q24HR #6 tablet 02/06/22 Unknown Rx Potassium Chloride [K-Dur] 20 meq PO BID #30 tab 02/10/22 Unknown Rx traMADoL [Ultram 50 MG tab] 50 mg PO Q6HR PRN #12 tablet 03/04/22 Unknown Rx Allergies Allergy/AdvReac Type Severity Reaction Status Date / Time lisinopril AdvReac Angioedema Verified 01/19/19 12:35 ED Review of Systems ROS: Stated complaint: VERTIGO Other details as noted in HPI Constitutional: denies: chills, fever Eyes: denies: eye pain, eye discharge, vision change ENT: denies: ear pain, throat pain Respiratory: denies: cough, shortness of breath, wheezing Cardiovascular: denies: chest pain, palpitations Endocrine: no symptoms reported Gastrointestinal: denies: abdominal pain, nausea, diarrhea Genitourinary: denies: urgency, dysuria, discharge Musculoskeletal: denies: back pain, joint swelling, arthralgia Skin: denies: rash, lesions Neurological: denies: headache, weakness, paresthesias Psychiatric: denies: anxiety, depression Hematological/Lymphatic: denies: easy bleeding, easy bruising ED Past Medical Hx - Past Medical History Previous Medical History?: Yes Hx Hypertension: Yes Hx Heart Attack/AMI: No Hx Congestive Heart Failure: No Hx Diabetes: No Hx GERD: Yes Hx Liver Disease: No Hx Renal Disease: No Hx Arthritis: Yes Hx Kidney Stones: No Hx Asthma: No Hx COPD: No Hx Tuberculosis: No Hx HIV: No Additional medical history: Obesity, gout - Surgical History Past Surgical History?: Yes Additional Surgical History: hernia repair x2, R hip replacement - Social History Smoking Status: Unknown if ever smoked - Medications Home Medications: Home Medications Medication Instructions Recorded Confirmed Last Taken Type Amlodipine Besylate [Norvasc] 5 mg PO DAILY 12/22/21 12/22/21 Unknown History Metoprolol Xl [Metoprolol 50 mg PO QDAY 12/22/21 12/22/21 Unknown History SUCCINATE ER TAB] cycloSPORINE [Restasis] 1 drop OU BID 12/22/21 12/22/21 Unknown History hydroCHLOROthiazide [HCTZ] 25 mg PO QDAY 12/22/21 12/22/21 Unknown History Cyanocobalamin (Vitamin B-12) 1,000 mcg PO QDAY 12/31/21 12/31/21 1 Week Ago History [Vitamin B-12] ~12/24/21 Meclizine [Antivert] 25 mg PO QDAY PRN 12/31/21 12/31/21 Unknown History Apixaban [Eliquis] 10 mg PO Q12HR #70 tablet 02/06/22 Unknown Rx levoFLOXacin [Levaquin TAB] 750 mg PO Q24HR #6 tablet 02/06/22 Unknown Rx Potassium Chloride [K-Dur] 20 meq PO BID #30 tab 02/10/22 Unknown Rx traMADoL [Ultram 50 MG tab] 50 mg PO Q6HR PRN #12 tablet 03/04/22 Unknown Rx ED Physical Exam - General Limitations: No Limitations General appearance: alert, in no apparent distress - Head Head exam: Present: atraumatic, normocephalic - Eye Eye exam: Present: normal appearance - ENT ENT exam: Present: mucous membranes moist - Neck Neck exam: Present: normal inspection - Respiratory Respiratory exam: Present: normal lung sounds bilaterally. Absent: respiratory distress - Cardiovascular Cardiovascular Exam: Present: regular rate, normal rhythm. Absent: systolic murmur, diastolic murmur, rubs, gallop - GI/Abdominal GI/Abdominal exam: Present: soft, normal bowel sounds - Extremities Exam Extremities exam: Present: normal inspection - Back Exam Back exam: Present: normal inspection - Neurological Exam Neurological exam: Present: alert, oriented X3 - Psychiatric Psychiatric exam: Present: normal affect, normal mood - Skin Skin exam: Present: warm, dry, intact, normal color. Absent: rash ED Course Vital Signs 03/16/22 03/16/22 03/16/22 00:31 10:27 10:30 Temperature 98.7 F Pulse Rate 80 61 Respiratory 18 15 12 Rate Blood Pressure 127/94 143/109 Blood Pressure [Left] O2 Sat by Pulse 98 99 Oximetry 03/16/22 03/16/22 03/16/22 10:32 10:46 11:00 Temperature 98.0 F Pulse Rate 58 L 56 L 56 L Respiratory 14 16 12 Rate Blood Pressure 133/91 133/91 Blood Pressure 144/88 [Left] O2 Sat by Pulse 99 97 98 Oximetry ED Medical Decision Making - Lab Data Result diagrams: 03/16/22 09:03 03/16/22 09:03 - Radiology Data Radiology results: report reviewed, image reviewed - Medical Decision Making work up unremarkable , vss , meds controlled nauseaand dizziness Critical care attestation.: If time is entered above; I have spent that time in minutes in the direct care of this critically ill patient, excluding procedure time. ED Disposition Clinical Impression: Dizziness, Vertigo Disposition: 01 HOME / SELF CARE / HOMELESS Is pt being admited?: No Does the pt Need Aspirin: No Condition: Stable Instructions: Dizziness Referrals: PRIMARY CARE, [Primary Care Provider] - 3-5 Days
[2022-03-16 12:36] LABS: Creatine Kinase MB 1.6 ng/mL (0.0-4.0)
[2022-03-16 12:57] VITALS: BP 154/99
[2022-03-16 13:34] LABS: Amorphous Crystals,Urine 3+
[2022-03-16 13:35] LABS: Amphetamine Screen,Urine Negative; Benzodiazepines Screen,Urine Negative; Cannabinoid Screen,Urine Negative; Cocaine Screen,Urine Negative; Methadone Screen,Urine Negative; Opiate Screen,Urine Negative
[2022-03-16 13:52] LABS: Color,Urine Yellow (Yellow)
== END 2022-03-16 12:57 | disposition home or self-care (01) ==
LOC: ED 23:51
DX: R42 Dizziness and giddiness (principal); Z88.8 Allergy status to other drugs, medicaments and biological substances; I10 Essential (primary) hypertension; Z79.899 Other long term (current) drug therapy
CPT/HCPCS: 36415; 70450; 71045; 80053; 80307; 81001; 82010; 82550; 82553; 83880; 84484; 85025; 86140; 87086; 96361; 96374; 99284; J2405; J7030; 99282